=== PATIENT | male | born 1980 | race Caucasian/White ===

== ENCOUNTER → 2019-10-22 | Outpatient (REF) | payer OTHER ==
[2019-10-22 18:27] LABS: APPEARANCE, URINE CLEAR (CLEAR); BACTERIA, URINE AUTO NEGATIVE (NEGATIVE); BILIRUBIN, URINE AUTO NEGATIVE (NEGATIVE); BLOOD, URINE BLOOD NEGATIVE (NEGATIVE); COLOR, URINE YELLOW (YELLOW); GLUCOSE, URINE (UA) AUTO NEGATIVE (NEGATIVE); KETONE, URINE AUTO NEGATIVE (NEGATIVE); LEUKOCYTE ESTERASE, URINE AUTO NEGATIVE (NEGATIVE); MUCUS, URINE SMALL (NEGATIVE); NITRITE, URINE AUTO NEGATIVE (NEGATIVE); PROTEIN, URINE AUTO NEGATIVE (NEGATIVE); RBC, URINE AUTO 0 /HPF (0-3); SPECIFIC GRAVITY URINE AUTO 1.021 (1.002-1.035); SQUAMOUS EPITHELIAL CELL UR AU 0 /HPF (0-6); UROBILINOGEN, URINE AUTO 0.2 mg/dL (0.0-2.0); WBC, URINE AUTO 0 /HPF (0-3)
== END ==
LOC: M SMT 17:18
PROVIDERS: ATTEND Nurse Practitioner Women's Health
DX: R35.0 Frequency of micturition (principal)

== ENCOUNTER 2020-07-07 06:01 | Inpatient (IN) | payer OTHER ==
[~2020-07-07] VITALS: Ht 167.6 cm; Wt 77.9 kg
--- OUTSIDE RECORDS SUMMARY | 2020-07-07 06:06 | CCD ---
Author Author [facility] Organization [facility] Address Unknown Phone Unavailable Care Team Providers Care Bowl Turner Name Role Phone Jumalon, M Summer PHOTO JOURNALIST Unavailable Unavailable Jumalon, M Summer PHOTO JOURNALIST Unavailable Unavailable Jumalon, M Summer PHOTO JOURNALIST Unavailable Unavailable Jumalon, M Summer PHOTO JOURNALIST Unavailable Unavailable Jumalon, M Summer PHOTO JOURNALIST Unavailable Unavailable Jumalon, M Summer PHOTO JOURNALIST Unavailable Unavailable Jumalon, M Summer PHOTO JOURNALIST Unavailable Unavailable Jumalon, M Summer PHOTO JOURNALIST Unavailable Unavailable Jumalon, M Summer PHOTO JOURNALIST Unavailable Unavailable Jumalon, M Summer PHOTO JOURNALIST Unavailable Unavailable Jumalon, M Summer PHOTO JOURNALIST Unavailable Unavailable Jumalon, M Summer PHOTO JOURNALIST Unavailable Unavailable Jumalon, M Summer PHOTO JOURNALIST Unavailable Unavailable Jumalon, M Summer PHOTO JOURNALIST Unavailable Unavailable Jumalon, M Summer PHOTO JOURNALIST Unavailable Unavailable Jumalon, M Summer PHOTO JOURNALIST Unavailable Unavailable Jumalon, M Summer PHOTO JOURNALIST Unavailable Unavailable Jumalon, M Summer PHOTO JOURNALIST Unavailable Unavailable Jumalon, M Summer PHOTO JOURNALIST Unavailable Unavailable Jumalon, M Summer PHOTO JOURNALIST Unavailable Unavailable Jumalon, M Summer PHOTO JOURNALIST Unavailable Unavailable Jumalon, M Summer PHOTO JOURNALIST Unavailable Unavailable Jumalon, M Summer PHOTO JOURNALIST Unavailable Unavailable Jumalon, M Summer PHOTO JOURNALIST Unavailable Unavailable Jumalon, M Summer PHOTO JOURNALIST Unavailable Unavailable Jumalon, M Summer PHOTO JOURNALIST Unavailable Unavailable Jumalon, M Summer PHOTO JOURNALIST Unavailable Unavailable Jumalon, M Summer PHOTO JOURNALIST Unavailable Unavailable MCELHERAN, CHLOÉ PA Unavailable Unavailable MCELHERAN, CHLOÉ PA Unavailable Unavailable MCELHERAN, CHLOÉ PA Unavailable Unavailable MCELHERAN, CHLOÉ PA Unavailable Unavailable MCELHERAN, CHLOÉ PA Unavailable Unavailable MCELHERAN, CHLOÉ PA Unavailable Unavailable MCELHERAN, CHLOÉ PA Unavailable Unavailable MCELHERAN, CHLOÉ PA Unavailable Unavailable MCELHERAN, CHLOÉ PA Unavailable Unavailable MCELHERAN, CHLOÉ PA Unavailable Unavailable MCELHERAN, CHLOÉ PA Unavailable Unavailable MCELHERAN, CHLOÉ PA Unavailable Unavailable MCELHERAN, CHLOÉ PA Unavailable Unavailable MCELHERAN, CHLOÉ PA Unavailable Unavailable MCELHERAN, CHLOÉ PA Unavailable Unavailable MCELHERAN, CHLOÉ PA Unavailable Unavailable MCELHERAN, CHLOÉ PA Unavailable Unavailable MCELHERAN, CHLOÉ PA Unavailable Unavailable MCELHERAN, CHLOÉ PA Unavailable Unavailable MCELHERAN, CHLOÉ PA Unavailable Unavailable MCELHERAN, CHLOÉ PA Unavailable Unavailable MCELHERAN, CHLOÉ PA Unavailable Unavailable MCELHERAN, CHLOÉ PA Unavailable Unavailable MCELHERAN, CHLOÉ PA Unavailable Unavailable MCELHERAN, CHLOÉ PA Unavailable Unavailable MCELHERAN, CHLOÉ PA Unavailable Unavailable MCELHERAN, CHLOÉ PA Unavailable Unavailable MCELHERAN, CHLOÉ PA Unavailable Unavailable Bolla, S Doroteo MD Unavailable Unavailable Bolla, S Doroteo MD Unavailable Unavailable Bolla, S Doroteo MD Unavailable Unavailable Bolla, S Doroteo MD Unavailable Unavailable Bolla, S Doroteo MD Unavailable Unavailable Bolla, S Doroteo MD Unavailable Unavailable Bolla, S Doroteo MD Unavailable Unavailable Bolla, S Doroteo MD Unavailable Unavailable Bolla, S Doroteo MD Unavailable Unavailable Bolla, S Doroteo MD Unavailable Unavailable Bolla, S Doroteo MD Unavailable Unavailable Bolla, S Doroteo MD Unavailable Unavailable Bolla, S Doroteo MD Unavailable Unavailable Bolla, S Doroteo MD Unavailable Unavailable Bolla, S Doroteo MD Unavailable Unavailable Bolla, S Doroteo [place] Unavailable Unavailable Bolla, S Doroteo MD Unavailable Unavailable Bolla, S Doroteo MD Unavailable Unavailable Bolla, S Doroteo MD Unavailable Unavailable Bolla, S Doroteo MD Unavailable Unavailable Bolla, S Doroteo MD Unavailable Unavailable Bolla, S Doroteo MD Unavailable Unavailable Bolla, S Doroteo MD Unavailable Unavailable Bolla, S Doroteo MD Unavailable Unavailable Bolla, S Doroteo MD Unavailable Unavailable Bolla, S Doroteo MD Unavailable Unavailable Bolla, S Doroteo MD Unavailable Unavailable Bolla, S Doroteo MD Unavailable Unavailable Bolla, S Doroteo MD Unavailable Unavailable Bolla, S Doroteo MD Unavailable Unavailable Bolla, S Doroteo MD Unavailable Unavailable Bolla, S Doroteo MD Unavailable Unavailable Bolla, S Doroteo MD Unavailable Unavailable Bolla, S Doroteo MD Unavailable Unavailable Bolla, S Doroteo MD Unavailable Unavailable Bolla, S Doroteo MD Unavailable Unavailable Bolla, S Dortoeo MD Unavailable Unavailable Bolla, S Doroteo MD Unavailable Unavailable Bolla, S Doroteo MD Unavailable Unavailable Bolla, S Doroteo MD Unavailable Unavailable Bolla, S Doroteo MD Unavailable Unavailable Bolla, S Doroteo MD Unavailable Unavailable Bolla, S Doroteo MD Unavailable Unavailable Bolla, S Doroteo MD Unavailable Unavailable Bolla, S Doroteo MD Unavailable Unavailable Bolla, S Doroteo MD Unavailable Unavailable Bolla, S Doroteo MD Unavailable Unavailable Bolla, S Doroteo MD Unavailable Unavailable Re-disclosure Warning The records that you are about to access may contain information from federally-assisted alcohol or drug abuse programs. If such information is present, then the following federally mandated warning applies: This information has been disclosed to you from records protected by federal confidentiality rules (42 CFR part 2). The federal rules prohibit you from making any further disclosure of this information unless further disclosure is expressly permitted by the written consent of the person to whom it pertains or as otherwise permitted by 42 CFR part 2. A general authorization for the release of medical or other information is NOT sufficient for this purpose. The Federal rules restrict any use of the information to criminally investigate or prosecute any alcohol or drug abuse patient.The records that you are about to access may contain highly sensitive health information, the redisclosure of which is protected by Article 27-F of the [facility] Public Health law. If you continue you may have access to information: Regarding HIV / AIDS; Provided by facilities licensed or operated by the [facility] Office of Mental Health; or Provided by the [facility] Office for People With Developmental Disabilities. If such information is present, then the following [facility] mandated warning applies: This information has been disclosed to you from confidential records which are protected by state law. State law prohibits you from making any further disclosure of this information without the specific written consent of the person to whom it pertains, or as otherwise permitted by law. Any unauthorized further disclosure in violation of state law may result in a fine or skilled nursing sentence or both. A general authorization for the release of medical or other information is NOT sufficient authorization for further disc losure. Family History Family Member Name Family Member Gender Family Member Status Date o f Status Description Data Source(s) Unknown Female Problem [facility] ([facility]) Encounters Encounter Providers Location Date Indications Data Source(s ) OFFICE OUTPATIENT NEW 30 MINUTES Attender: CHLOÉ ORLANDO Physical Therapy 03/24/2020 09:30:00 AM EST MEDENT ([facility]) Summer Yeung, ANDREIA: [id number], [place] [address], Ph. Attender: Summer Yeung [facility] 12/30/2019 12:00:00 AM EDT IVANIA GRIGGS ([facility]) Doroteo Stewart MD: [id number] [facility] [address], [place] [address], Ph. Attender: Doroteo Stewart MD [facility] Office 12/14/2019 12:00:00 AM EDT LONNIE ([facility]) Doroteo Stewart MD: [id number] [facility] [address], [place] [address], Ph. Attender: Doroteo Stewart MD [facility] Office 12/14/2019 12:00:00 AM EDT LONNIE ([facility]) Doroteo Stewart MD: [address], [address], [place] [address], Ph. [phone] Attender: Doroteo Stewart MD [place] - [facility] 12/09/2019 12:00:00 AM EDT LONNIE ([facility]) Doroteo Stewart MD: [address], [address], [place] [address], Ph. [phone] Attender: Doroteo Stewart MD [place] - [facility] 12/09/2019 12:00:00 AM EDT LONNIE ([facility]) Doroteo Stewart MD: [address], [address], [place] [address], Ph. [phone] Attender: Doroteo AUSTIN - [facility] 12/09/2019 12:00:00 AM EDT LONNIE ([facility]) Doroteo Stewart MD: [address], [address], [place] [address], Ph. Attender: Doroteo Stewart MD [place] - [facility] 11/27/2019 12:00:00 AM EDT LONNIE ([facility]) Doroteo Stewart MD: [address], [address], [place] [address], Ph. Attender: Doroteo AUSTIN - [facility] 11/27/2019 12:00:00 AM EDT LONNIE ([facility]) Doroteo Stewart MD: [address], [address], [place] [address], Ph. Attender: Doroteo AUSTIN - [facility] 11/27/2019 12:00:00 AM EDT LONNIE ([facility]) Doroteo Stewart MD: [address], [address], [place] [address], Ph. Attender: Doroteo Stewart MD [place] - [facility] - [facility] 11/27/2019 12:00:00 AM EDT LONNIE ([facility]) Doroteo Stewart MD: [address], [address], [place] [address], Ph. [phone] Attender: Doroteo Stewart MD [place] - [facility] - [facility] 11/24/2019 12:00:00 AM EDT LONNIE ([facility]) Doroteo Stewart MD: [address], [address], [place] [address], Ph. [phone] Attender: Doroteo Stewart MD [place] - [facility] 11/24/2019 12:00:00 AM EDT LONNIE ([facility]) Doroteo Stewart MD: [address], [address], [place] [address], Ph. [phone] Attender: Doroteo Stewart MD [place] - [facility] - [facility] 11/24/2019 12:00:00 AM EDT LONNIE ([facility]) Doroteo Stewart MD: [address], [address], [place] [address], Ph. [phone] Attender: Doroteo Stewart MD [place] - [facility] 11/24/2019 12:00:00 AM EDT LONNIE ([facility]) Doroteo Stewart MD: [address], [address], [place] [address], Ph. [phone] Attender: Doroteo Stewart MD [place] - [facility] 11/24/2019 12:00:00 AM EDT LONNIE ([facility]) Doroteo Stewart MD: [address], [address], [place] [address], Ph. Attender: Doroteo Stewart MD [place] - [facility] 11/12/2019 12:00:00 AM EDT LONNIE ([facility]) Doroteo Stewart MD: [address], [address], [place] [address], Ph. Attender: Doroteo Stewart MD [place] - [facility] Office 11/12/2019 12:00:00 AM EDT LONNIE ([facility]) Doroteo Stewart MD: [address], [place] [address], Ph. Attender: Doroteo Stewart MD [place] - [facility] 11/12/2019 12:00:00 AM EDT LONNIE ([facility]) Doroteo Stewart MD: [address], [address], [place] [address], Ph. Attender: Doroteo Stewart MD [place] - [facility] 11/12/2019 12:00:00 AM EDT LONNIE ([facility]) Doroteo Stewart MD: [address] [address], [place] [address], Ph. Attender: Doroteo AUSTIN - [facility] 11/12/2019 12:00:00 AM EDT LONNIE ([facility]) Doroteo Stewart MD: [address], [place] [address], Ph. Attender: Doroteo Stewart MD [place] - [facility] Office 11/12/2019 12:00:00 AM EDT LONNIE ([facility]) Unknown [address] [facility] [address] 11/11/2019 12:00:00 AM EDT eCW1 ([facility]) Doroteo Stewart MD: [address], [address], [place] [address], Ph. [phone] Attender: Doroteo Stewart MD [place] - [facility] - [facility] Office 11/09/2019 12:00:00 AM EDT LONNIE ([facility]) Doroteo Stewart MD: [address] [address], [address], [place] [address], Ph. [phone] Attender: Doroteo Stewart MD [place] - [facility] 11/09/2019 12:00:00 AM EDT LONNIE ([facility]) Doroteo Stewart MD: [address], [address], [place] [address], Ph. [phone] Attender: Doroteo Stewart MD [place] - [facility] 11/09/2019 12:00:00 AM EDT LONNIE ([facility]) Doroteo Stewart MD: [address], [address], [place] [address], Ph. [phone] Attender: Doroteo Stewart MD [place] - [facility] - [facility] 11/09/2019 12:00:00 AM EDT LONNIE ([facility]) Doroteo Stewart MD: [address] [address], [address], [place] [address], Ph. [phone] Attender: Doroteo Stewart MD [place] - [facility] Office 11/09/2019 12:00:00 AM EDT LONNIE ([facility]) Doroteo Stewart MD: [address], [address], [place] [address], Ph. [phone] Attender: Doroteo Stewart MD [place] - [facility] 11/09/2019 12:00:00 AM EDT LONNIE ([facility]) Doroteo Stewart MD: [address], [address], [place] [address], Ph. [phone] Attender: Doroteo Stewart MD [place] - [facility] 11/09/2019 12:00:00 AM EDT LONNIE ([facility]) Doroteo Stewart MD: [address] [address], [address], [place] [address], Ph. Attender: Doroteo Stewart MD [place] - [facility] 10/29/2019 12:00:00 AM EDT LONNIE ([facility]) Doroteo Stewart MD: [address] [address], [address], [place] [address], Ph. Attender: Doroteo Stewart MD [place] - [facility] 10/29/2019 12:00:00 AM EDT LONINE ([facility]) Doroteo Stewart MD: [address] [address], [address], [place] [address], Ph. Attender: Doroteo Stewart MD [place] - [facility] 10/29/2019 12:00:00 AM EDT LONNIE ([facility]) Doroteo Stewart MD: [address] [address], [address], [place] [address], Ph. Attender: Doroteo Stewart MD [place] - [facility] 10/29/2019 12:00:00 AM EDT LONNIE ([facility]) Doroteo Stewart MD: [address], [address], [place] [address], Ph. Attender: Doroteo Stewart MD [place] - [facility] 10/29/2019 12:00:00 AM EDT LONNIE ([facility]) Doroteo Stewart MD: [address] [address], [address], [place] [address], Ph. Attender: Doroteo Stewart MD [place] - [facility] Office 10/29/2019 12:00:00 AM EDT LONNIE ([facility]) Doroteo Stewart MD: [address], [address], [place] [address], Ph. Attender: Doroteo Stewart MD [place] - [facility] Office 10/29/2019 12:00:00 AM EDT LONNIE ([facility]) Unknown [address] [facility] [id number] 10/29/2019 12:00:00 AM EDT eC ([facility]) Doroteo Stewart MD: [address], [place] [address], Ph. Attender: Doroteo Stewart MD [place] - [facility] 10/29/2019 12:00:00 AM EDT LONNIE ([facility]) Doroteo Stewart MD: [address] [address], [address], [place] [address], Ph. [phone] Attender: Doroteo Stewart MD [place] - [facility] 10/26/2019 12:00:00 AM EDT LONNIE ([facility]) Doroteo Stewart MD: [address], [address], [place] [address], Ph. [phone] Attender: Doroteo AUSTIN - [facility] Office 10/26/2019 12:00:00 AM EDT LONNIE ([facility]) Doroteo Stewart MD: [address] [address], [address], [place] [address], Ph. [phone] Attender: Doroteo AUST[place] - [facility] 10/26/2019 12:00:00 AM EDT LONNIE ([facility]) Doroteo Stewart MD: [address] [address], [place] [address], Ph. [phone] Attender: Doroteo Stewart MD [place] - [facility] - [facility] Office 10/26/2019 12:00:00 AM EDT LONNIE ([facility]) Doroteo Stewart MD: [address] [address], [address], [place] [address], Ph. [phone] Attender: Doroteo Stewart MD [place] - [facility] - [facility] 10/26/2019 12:00:00 AM EDT LONNIE ([facility]) Doroteo Stewart MD: [address] [address], [address], [place] [address], Ph. [phone] Attender: Doroteo Stewart MD [place] - [facility] - [facility] 10/26/2019 12:00:00 AM EDT LONNIE ([facility]) Doroteo Stewart MD: [address], [address], [place] [address], Ph. [phone] Attender: Doroteo Stewart MD [place] - [facility] - [facility] Office 10/26/2019 12:00:00 AM EDT LONNIE ([facility]) Doroteo Stewart MD: [address] [address], [place] [address], Ph. [phone] Attender: Doroteo AUSTIN - [facility] - [facility] Office 10/26/2019 12:00:00 AM EDT LONNIE ([facility]) Doroteo Stewart MD: [address]35 [address], [address], [place] [address], Ph. [phone] Attender: Doroteo Stewart MD [place] - [facility] - [facility] Office 10/26/2019 12:00:00 AM EDT LONNIE ([facility]) Outpatient [address] [facility] [address] 10/22/2019 12:00:00 AM EDT eCW1 ([facility]) Doroteo Stewart MD: [address], [place] [address], Ph. [phone] Attender: Doroteo Stewart MD [place] - [facility] 2019 12:00:00 AM EDT LONNIE ([facility]) Doroteo Stewart MD: [address] [address], [address], [place] [address], Ph. [phone] Attender: Doroteo Stewart MD [place] - [facility] 2019 12:00:00 AM EDT LONNIE ([facility]) Doroteo Stewart MD: [address], [address], [place] [address], Ph. [phone] Attender: Doroteo Stewart MD [place] - [facility] 2019 12:00:00 AM EDT LONNIE ([facility]) Doroteo Stewart MD: [address] [address], [place] [address], Ph. [phone] Attender: Doroteo Stewart MD [place] - [facility] 2019 12:00:00 AM EDT LONNIE ([facility]) Doroteo Stewart MD: [address], [address], [place] [address], Ph. [phone] Attender: Doroteo Stewart MD [place] - [facility] Office 2019 12:00:00 AM EDT LONNIE ([facility]) Doroteo Stewart MD: [address]43 [address], [place] [address], Ph. [phone] Attender: Doroteo AUST[place] - [facility] 2019 12:00:00 AM EDT LONNIE ([facility]) Doroteo Stewart MD: [address]67 [address], [address], [place] [address], Ph. [phone] Attender: Doroteo Stewart MD [place] - [facility] 2019 12:00:00 AM EDT LONNIE ([facility]) Doroteo Stewart MD: [address] [address], [address], [place] [address], Ph. [phone] Attender: Doroteo Stewart MD [place] - [facility] 2019 12:00:00 AM EDT LONNIE ([facility]) Doroteo Stewart MD: [address]45 [address], [address], [place] [address], Ph. [phone] Attender: Doroteo Stewart MD [place] - [facility] 2019 12:00:00 AM EDT LONNIE ([facility]) Doroteo Stewart MD: [address]57 [address], [address], [place] [address], Ph. [phone] Attender: Doroteo Stewart MD [place] - [facility] 2019 12:00:00 AM EDT LONNIE ([facility]) Summer Yeung, OIL TANKER CAPTAIN: [address], [place] [address], Ph. Attender: Summer Yeung [facility] - [facility] 09/16/2019 12:00:00 AM EDT IVANIA GRIGGS ([facility]) Summer Yeung, OIL TANKER CAPTAIN: [address], [place] [address], Ph. Attender: Summer Yeung [facility] - [facility] 09/16/2019 12:00:00 AM EDT ATHE NA ([facility]) Summer Yeung, OIL TANKER CAPTAIN: [address], [address], [place] [address], Ph. Attender: Summer Yeung [facility] 09/16/2019 12:00:00 AM EDT ATHE NA ([facility]) Summer Yeung, OIL TANKER CAPTAIN: [address], [address], [place] [address], Ph. Attender: Summer Halekeaton [facility] 09/16/2019 12:00:00 AM EDT ATHE NA ([facility]) Summer Yeung, OIL TANKER CAPTAIN: [address], [place] [address], Ph. Attender: Summernba Yeung [facility] 09/16/2019 12:00:00 AM EDT ATHE NA ([facility]) uSmmer Yeung, OIL TANKER CAPTAIN: [address], [place] [address], Ph. Attender: Summer Giseleronniekeaton [facility] 09/16/2019 12:00:00 AM EDT ATHE NA ([facility]) Summer Yeung, OIL TANKER CAPTAIN: [address], [address], [place] [address], Ph. Attender: Summernba Yeung [facility] 09/16/2019 12:00:00 AM EDT ATHE NA ([facility]) Summer Yeung, OIL TANKER CAPTAIN: [address], [address], [place] [address], Ph. Attender: Summer Yeung [facility] 09/16/2019 12:00:00 AM EDT ATHNba NA ([facility]) Summer Yeung, OIL TANKER CAPTAIN: [address], [place] [address], Ph. Attender: Summer Yeung [facility] - [facility] 09/16/2019 12:00:00 AM EDT ATHE NA ([facility]) Summer Yeung, OIL TANKER CAPTAIN: [address], [place] [address], Ph. Attender: Summer Yeung [facility] - [facility] 09/16/2019 12:00:00 AM EDT ATHNba GRIGGS ([facility]) Summer Yeung, OIL TANKER CAPTAIN: [address], [address], [place] [address], Ph. Attender: Summer Yeung [facility] - [facility] 09/16/2019 12:00:00 AM EDT ATHNba GRIGGS ([facility]) Summer Yeung, OIL TANKER CAPTAIN: [address], [place] [address], Ph. Attender: Summer Yeung [facility] 08/31/2019 12:00:00 AM EDT LONNIE ([facility]) Summer Yeung, OIL TANKER CAPTAIN: [address], [place] [address], Ph. Attender: Summer Yeung [facility] 08/31/2019 12:00:00 AM EDT LONNIE ([facility]) Summer Yeung, OIL TANKER CAPTAIN: [address], [place] [address], Ph. Attender: Summer Yeung [employer] [facility] 08/31/2019 12:00:00 AM EDT LONNIE ([facility]) Summer Yeung, OIL TANKER CAPTAIN: [address], [place] [address], Ph. Attender: Summer Yeung [place] [place] [facility] 08/31/2019 12:00:00 AM EDT LONNIE ([facility]) Summer Yeung, OIL TANKER CAPTAIN: [address], [place] [address], Ph. Attender: Summer Yeung [employer] [place] - [facility] 08/31/2019 12:00:00 AM EDT LONNIE ([facility]) Summer Yeung, OIL TANKER CAPTAIN: [address], [place] [address], Ph. Attender: Summer Yeung [employer] [place] [facility] 08/31/2019 12:00:00 AM EDT LONNIE ([facility]) Summer Yeung, OIL TANKER CAPTAIN: [address], [place] [address], Ph. Attender: Summer Yeung [employer] [place] [facility] 08/31/2019 12:00:00 AM EDT LONNIE ([facility]) Summer Yeung, OIL TANKER CAPTAIN: [address], [place] [address], Ph. Attender: Summer Yeung PH[employer] JOU[place] - [facility] 08/31/2019 12:00:00 AM EDT LONNIE ([facility]) Summer Yeung, OIL TANKER CAPTAIN: [address], [place] [address], Ph. Attender: Summer Yeung [facility] 08/31/2019 12:00:00 AM EDT LONNIE ([facility]) Summer Yeung, OIL TANKER CAPTAIN: [address], [place] [address], Ph. Attender: Summer Yeung [facility] - [facility] 08/31/2019 12:00:00 AM EDT LONNIE ([facility]) Summer Yeung, OIL TANKER CAPTAIN: [address], [place] [address], Ph. Attender: Summer Yeung [facility] - [facility] 08/31/2019 12:00:00 AM EDT LONNIE ([facility]) Summer Yeung, OIL TANKER CAPTAIN: [address], [place] [address], Ph. Attender: Summer Yeung [facility] - [facility] 08/31/2019 12:00:00 AM EDT LONNIE ([facility]) Medications Medication Brand Name Start Date Product Form Dose Route Admi nistrative Instructions Pharmacy Instructions Status Indications Reaction Description Data Source(s) 24 HR Oxybutynin chloride 10 MG Extended Release Oral Tablet Oxybutynin Chloride ER 10 MG Oxybutynin Chloride ER 10 MG 11/11/2019 12:00:00 AM EDT 1.0 {tablet} active Oxybutynin Chloride ER 10 MG eCW1 ([facility]) Myrebtriq 25 MG UNK 10/22/2019 12:00:00 AM EDT 1.0 {tablet} active Myrebtriq 25 MG eCW1 ([facility]) Myrebtriq 25 MG UNK 10/22/2019 12:00:00 AM EDT 1.0 {tablet} active Myrebtriq 25 MG eCW1 ([facility]) Myrebtriq 25 MG UNK 10/22/2019 12:00:00 AM EDT 1.0 {tablet} active Myrebtriq 25 MG eCW1 ([facility]) Insurance Providers Payer name Policy type / Coverage type Policy ID Covered libertarian ID Covered libertarian's relationship to pond Policy Pond Plan Information [employer] [id number] SP [id number] U [id number] Self [id number] [employer] [id number] Self [id number] [employer] [place] [id number] 18 [id number] [employer] - PHYSICIAN CO [id number] 18 [id number] EAST [employer] - O/P [id number] 18 [id number] [employer] Commercial [id number] Self [id number] ANSI-Not a Secondary Insurance [id number] Problems, Conditions, and Diagnoses Code Display Name Description Problem Type Effective Dates Data Source(s) N39.43 Dribbling of urine Dribbling following urination Probl em 10/22/2019 12:00:00 AM EDT eCW1 ([facility]) Surgeries/Procedures Procedure Description Date Indications Data Source(s) uro PVR (Post Voiding Residual) Bladder Scan 0 12:00:00 AM EDT eCW1 ([facility]) Results ID Date Data Source [id number] 12/09/2019 12:00:00 AM EDT LONNIE ([facility]) Name Value Range Interpretation Code Description Data Hortencia rce(s) Supporting Document(s) ID Date Data Source [id number] 12/09/2019 12:00:00 AM EDT [facility] Name Value Range Interpretation Code Description Data Hortencia rce(s) Supporting Document(s) SARS-CoV-2 [facility] This lab was ordered by [facility]-COVID[facility] and reported by [facility]. ID Date Data Source [id number] 12/09/2019 12:00:00 AM EDT LONNIE ([facility]) Name Value Range Interpretation Code Description Data Hortencia rce(s) Supporting Document(s) ID Date Data Source [id number] 11/24/2019 12:00:00 AM EDT LONNEI ([facility]) Name Value Range Interpretation Code Description Data Hortencia rce(s) Supporting Document(s) ID Date Data Source [id number] 11/24/2019 12:00:00 AM EDT LONNIE ([facility]) Name Value Range Interpretation Code Description Data Hortencia rce(s) Supporting Document(s) ID Date Data Source [id number] 11/24/2019 12:00:00 AM EDT LONNIE ([facility]) Name Value Range Interpretation Code Description Data Hortencia rce(s) Supporting Document(s) ID Date Data Source [id number] 11/24/2019 12:00:00 AM EDT [facility] Name Value Range Interpretation Code Description Data Hortencia rce(s) Supporting Document(s) SARS-CoV-2 [facility] This lab was ordered by [facility] and reported by [facility]. ID Date Data Source [id number] 11/24/2019 12:00:00 AM EDT LONNIE ([facility]) Name Value Range Interpretation Code Description Data Hortencia rce(s) Supporting Document(s) ID Date Data Source [id number] 11/09/2019 12:00:00 AM EDT LONNIE ([facility]) Name Value Range Interpretation Code Description Data Hortencia rce(s) Supporting Document(s) ID Date Data Source [id number] 11/09/2019 12:00:00 AM EDT LONNIE ([facility]) Name Value Range Interpretation Code Description Data Hortencia rce(s) Supporting Document(s) ID Date Data Source [id number] 11/09/2019 12:00:00 AM EDT LONNIE ([facility]) Name Value Range Interpretation Code Description Data Hortencia rce(s) Supporting Document(s) ID Date Data Source [id number] 11/09/2019 12:00:00 AM EDT LONNIE ([facility]) Name Value Range Interpretation Code Description Data Hortencia rce(s) Supporting Document(s) ID Date Data Source [id number] 11/09/2019 12:00:00 AM EDT LONNIE ([facility]) Name Value Range Interpretation Code Description Data Hortencia rce(s) Supporting Document(s) ID Date Data Source [id number] 11/09/2019 12:00:00 AM EDT LONNIE ([facility]) Name Value Range Interpretation Code Description Data Hortencia rce(s) Supporting Document(s) ID Date Data Source [id number] 11/09/2019 12:00:00 AM EDT [facility] Name Value Range Interpretation Code Description Data Hortencia rce(s) Supporting Document(s) SARS-CoV-2 [facility] This lab was ordered by [facility]-COVID[facility] and reported by [facility]. ID Date Data Source [id number] 10/26/2019 12:00:00 AM EDT LONNIE ([facility]) Name Value Range Interpretation Code Description Data Hortencia rce(s) Supporting Document(s) ID Date Data Source [id number] 10/26/2019 12:00:00 AM EDT LONNIE ([facility]) Name Value Range Interpretation Code Description Data Hortencia rce(s) Supporting Document(s) ID Date Data Source [id number] 10/26/2019 12:00:00 AM EDT LONNIE ([facility]) Name Value Range Interpretation Code Description Data Hortencia rce(s) Supporting Document(s) ID Date Data Source [id number] 10/26/2019 12:00:00 AM EDT LONNIE ([facility]) Name Value Range Interpretation Code Description Data Hortencia rce(s) Supporting Document(s) ID Date Data Source [id number] 10/26/2019 12:00:00 AM EDT LONNIE ([facility]) Name Value Range Interpretation Code Description Data Hortencia rce(s) Supporting Document(s) ID Date Data Source [id number] 10/26/2019 12:00:00 AM EDT LONNIE ([facility]) Name Value Range Interpretation Code Description Data Hortencia rce(s) Supporting Document(s) ID Date Data Source [id number] 10/26/2019 12:00:00 AM EDT LONNIE ([facility]) Name Value Range Interpretation Code Description Data Hortencia rce(s) Supporting Document(s) ID Date Data Source [id number] 10/26/2019 12:00:00 AM EDT LONNIE ([facility]) Name Value Range Interpretation Code Description Data Hortencia rce(s) Supporting Document(s) ID Date Data Source [id number] 10/26/2019 12:00:00 AM EDT [facility] Name Value Range Interpretation Code Description Data Hortencia rce(s) Supporting Document(s) SARS-CoV-2 [facility] This lab was ordered by [facility]-COVID[facility] and reported by [facility]. ID Date Data Source [id number] URINALYSIS 10/23/2019 09:09:08 AM EDT eCW1 ([facility]) Name Value Range Interpretation Code Description Data Hortencia rce(s) Supporting Document(s) UA URINALYSIS eCW1 ([facility]) ID Date Data Source URINE CULTURE 10/23/2019 02:21:44 AM EDT eCW1 ([facility]) Name Value Range Interpretation Code Description Data Hortencia rce(s) Supporting Document(s) URINE CULTURE eCW1 ([facility]) ID Date Data Source [id number] 2019 12:00:00 AM EDT LONNIE ([facility]) Name Value Range Interpretation Code Description Data Hortencia rce(s) Supporting Document(s) ID Date Data Source [id number] 2019 12:00:00 AM EDT LONNIE ([facility]) Name Value Range Interpretation Code Description Data Hortencia rce(s) Supporting Document(s) ID Date Data Source [id number] 2019 12:00:00 AM EDT LONNIE ([facility]) Name Value Range Interpretation Code Description Data Hortencia rce(s) Supporting Document(s) ID Date Data Source [id number] 2019 12:00:00 AM EDT LONNIE ([facility]) Name Value Range Interpretation Code Description Data Hortencia rce(s) Supporting Document(s) ID Date Data Source [id number] 2019 12:00:00 AM EDT LONNIE ([facility]) Name Value Range Interpretation Code Description Data Hortencia rce(s) Supporting Document(s) ID Date Data Source [id number] 2019 12:00:00 AM EDT LONNIE ([facility]) Name Value Range Interpretation Code Description Data Hortencia rce(s) Supporting Document(s) ID Date Data Source [id number] 2019 12:00:00 AM EDT LONNIE ([facility]) Name Value Range Interpretation Code Description Data Hortencia rce(s) Supporting Document(s) ID Date Data Source [id number] 2019 12:00:00 AM EDT LONNIE ([facility]) Name Value Range Interpretation Code Description Data Hortencia rce(s) Supporting Document(s) ID Date Data Source [id number] 2019 12:00:00 AM EDT LONNIE ([facility]) Name Value Range Interpretation Code Description Data Hortencia rce(s) Supporting Document(s) ID Date Data Source [id number] 2019 12:00:00 AM EDT [facility] Name Value Range Interpretation Code Description Data Hortencia rce(s) Supporting Document(s) SARS-CoV-2 [facility] This lab was ordered by [facility] and reported by [facility]. Procedure Social History Code Duration Value Status Description Data Source(s ) Smoking 10/22/2019 12:00:00 AM EDT Never Smoker completed Never S moker eCW1 ([facility]) Smoking 10/22/2019 12:00:00 AM EDT Never Smoker completed Never S moker eCW1 ([facility]) Smoking 10/22/2019 12:00:00 AM EDT Never Smoker completed Never S moker eCW1 ([facility]) Vital Signs ID Date Data Source [id number] Name Value Range Interpretation Code Description Data Source(s) Body mass index (BMI) [Ratio] 27.3 kg/m2 27.3 k g/m2 MEDENT ([facility] ) Body weight 174.25 [lb_av] 174.25 [lb_av] MEDEN T ([facility] ) Body height 67 [in_i] 67 [in_i] MEDENT ([facility]) 5'7" Body temperature 97.3 [degF] 97.3 [degF] MEDENT ([facility]) Diastolic blood pressure 70 mm[Hg] 70 mm[Hg] eCW1 ([facility]) Systolic blood pressure 110 mm[Hg] 110 mm[Hg] e CW1 ([facility]) Body temperature 97.0 [degF] 97.0 [degF] eCW1 ( [facility]) Respiratory rate 18 /min 18 /min eCW1 ([facility]) Heart rate 60 /min 60 /min eCW1 ([facility]) Body mass index (BMI) [Ratio] 28.39 kg/m2 28.39 kg/m2 eCW1 ([facility]) Body height 66.5 [in_i] 66.5 [in_i] eCW1 ([facility]) Body weight 178.6 [lb_av] 178.6 [lb_av] eCW1 ([facility]) Body weight 165 [lb_av] 165 [lb_av] LONNIE ([facility]) Systolic blood pressure 101 mm[Hg] 101 mm[Hg] A THENA ([facility]) Body mass index (BMI) [Ratio] 26.6 kg/m2 26.6 k g/m2 LONNIE ([facility]) Body height 66 [in_i] 66 [in_i] LONNIE ([facility]) Diastolic blood pressure 58 mm[Hg] 58 mm[Hg] LONNIE ([facility]) Body weight 165 [lb_av] 165 [lb_av] LONNIE ([facility]) Systolic blood pressure 101 mm[Hg] 101 mm[Hg] A THENA ([facility]) Body mass index (BMI) [Ratio] 26.6 kg/m2 26.6 k g/m2 LONNIE ([facility]) Body height 66 [in_i] 66 [in_i] LONNIE ([facility]) Diastolic blood pressure 58 mm[Hg] 58 mm[Hg] LONNIE ([facility]) Body weight 165 [lb_av] 165 [lb_av] LONNIE ([facility]) Systolic blood pressure 101 mm[Hg] 101 mm[Hg] A THENA ([facility]) Body mass index (BMI) [Ratio] 26.6 kg/m2 26.6 k g/m2 LONNIE ([facility]) Body height 66 [in_i] 66 [in_i] LONNIE ([facility]) Diastolic blood pressure 58 mm[Hg] 58 mm[Hg] LONNIE ([facility]) Body weight 165 [lb_av] 165 [lb_av] LONNIE ([facility]) Systolic blood pressure 101 mm[Hg] 101 mm[Hg] A THENA ([facility]) Body mass index (BMI) [Ratio] 26.6 kg/m2 26.6 k g/m2 LONNIE ([facility]) Body height 66 [in_i] 66 [in_i] LONNIE ([facility]) Diastolic blood pressure 58 mm[Hg] 58 mm[Hg] LONNIE ([facility]) Body weight 165 [lb_av] 165 [lb_av] LONNIE ([facility]) Systolic blood pressure 101 mm[Hg] 101 mm[Hg] A THENA ([facility]) Body mass index (BMI) [Ratio] 26.6 kg/m2 26.6 k g/m2 LONNIE ([facility]) Body height 66 [in_i] 66 [in_i] LONNIE ([facility]) Diastolic blood pressure 58 mm[Hg] 58 mm[Hg] LONNIE ([facility]) Body weight 165 [lb_av] 165 [lb_av] LONNIE ([facility]) Systolic blood pressure 101 mm[Hg] 101 mm[Hg] A THENA ([facility]) Body mass index (BMI) [Ratio] 26.6 kg/m2 26.6 k g/m2 LONNIE ([facility]) Body height 66 [in_i] 66 [in_i] LONNIE ([facility]) Diastolic blood pressure 58 mm[Hg] 58 mm[Hg] LONNIE ([facility]) Body weight 165 [lb_av] 165 [lb_av] LONNIE ([facility]) Systolic blood pressure 101 mm[Hg] 101 mm[Hg] A THENA ([facility]) Body mass index (BMI) [Ratio] 26.6 kg/m2 26.6 k g/m2 LONNIE ([facility]) Body height 66 [in_i] 66 [in_i] LONNIE ([facility]) Diastolic blood pressure 58 mm[Hg] 58 mm[Hg] LONNIE ([facility]) Body weight 165 [lb_av] 165 [lb_av] LONNIE ([facility]) Systolic blood pressure 101 mm[Hg] 101 mm[Hg] A THENA ([facility]) Body mass index (BMI) [Ratio] 26.6 kg/m2 26.6 k g/m2 LONNIE ([facility]) Body height 66 [in_i] 66 [in_i] LONNIE ([facility]) Diastolic blood pressure 58 mm[Hg] 58 mm[Hg] LONNIE ([facility]) Body weight 165 [lb_av] 165 [lb_av] LONNIE ([facility]) Systolic blood pressure 101 mm[Hg] 101 mm[Hg] A THENA ([facility]) Body mass index (BMI) [Ratio] 26.6 kg/m2 26.6 k g/m2 LONNIE ([facility]) Body height 66 [in_i] 66 [in_i] LONNIE ([facility]) Diastolic blood pressure 58 mm[Hg] 58 mm[Hg] LONNIE ([facility]) Body weight 165 [lb_av] 165 [lb_av] LONNIE ([facility]) Systolic blood pressure 101 mm[Hg] 101 mm[Hg] A THENA ([facility]) Body mass index (BMI) [Ratio] 26.6 kg/m2 26.6 k g/m2 LONNIE ([facility]) Body height 66 [in_i] 66 [in_i] LONNIE ([facility]) Diastolic blood pressure 58 mm[Hg] 58 mm[Hg] LONNIE ([facility]) Body weight 165 [lb_av] 165 [lb_av] LONNIE ([facility]) Systolic blood pressure 101 mm[Hg] 101 mm[Hg] A THENA ([facility]) Body mass index (BMI) [Ratio] 26.6 kg/m2 26.6 k g/m2 LONNIE ([facility]) Body height 66 [in_i] 66 [in_i] LONNIE ([facility]) Diastolic blood pressure 58 mm[Hg] 58 mm[Hg] LONNIE ([facility]) Patient Treatment Plan of Care Planned Activity Planned Date Details Description Data Source (s) 24 HR Oxybutynin chloride 10 MG Extended Release Oral Tablet 11/11/2019 12:00:00 AM EDT eCW1 (On [facility] of [facility]) Myrebtriq 25 MG 10/22/2019 12:00:00 AM EDT eCW1 ([facility]) Myrebtriq 25 MG 10/22/2019 12:00:00 AM EDT eCW1 ([facility]) Myrebtriq 25 MG 10/22/2019 12:00:00 AM EDT eCW1 ([facility])
[2020-07-07 06:49] LABS: HEMATOCRIT 46.4 % (42.0-52.0); HEMOGLOBIN 15.5 g/dl (13.5-17.5); MEAN CORPUSCULAR HEMOGLOBIN 30.9 pg (27.0-33.0); MEAN CORPUSCULAR HGB CONC 33.4 g/dl (32.0-36.5); MEAN CORPUSCULAR VOLUME 92.6 fl (80.0-96.0); PLATELET COUNT, AUTOMATED 150 10^3/uL (150-450); RED BLOOD COUNT 5.01 10^6/uL (4.30-6.10); WHITE BLOOD COUNT 5.4 10^3/uL (4.0-10.0)
[2020-07-07 07:10] LABS: AMPHETAMINES LEVEL URINE NEGATIVE (NEGATIVE); BARBITURATES URINE NEGATIVE (NEGATIVE); BENZODIAZEPINES URINE NEGATIVE (NEGATIVE); CANNABINOIDS URINE NEGATIVE (NEGATIVE); COCAINE METABOLITE URINE NEGATIVE (NEGATIVE); METHADONE URINE NEGATIVE (NEGATIVE); OPIATES URINE NEGATIVE (NEGATIVE); PHENCYCLIDINE URINE NEGATIVE (NEGATIVE)
[2020-07-07 07:23] LABS: ACETAMINOPHEN LEVEL < 2.0 UG/ML (10.0-30.0); ALBUMIN 3.5 GM/DL (3.2-5.2); ALT/SGPT 21 U/L (12-78); BILIRUBIN,DIRECT 0.3 MG/DL (0.0-0.2); BILIRUBIN,TOTAL 0.9 MG/DL (0.2-1.0); BLOOD UREA NITROGEN 17 MG/DL (7-18); CALCIUM LEVEL 8.7 MG/DL (8.5-10.1); CARBON DIOXIDE LEVEL 30 MEQ/L (21-32); CHLORIDE LEVEL 107 MEQ/L (98-107); CREATININE FOR GFR 1.29 MG/DL (0.70-1.30); ETHYL ALCOHOL (ETHANOL) < 0.003 % (0.000-0.010); GLOMERULAR FILTRATION RATE > 60.0 (>60); GLUCOSE, FASTING 91 MG/DL (70-100); POTASSIUM SERUM 3.6 MEQ/L (3.5-5.1); SALICYLATE LEVEL < 1.7 MG/DL (5.0-30.0); SODIUM LEVEL 141 MEQ/L (136-145); TOTAL PROTEIN 6.4 GM/DL (6.4-8.2)
--- OUTSIDE RECORDS SUMMARY | 2020-07-07 07:33 | CCD ---
Author Author [facility] Organization [facility] Address Unknown Phone Unavailable Care Team Providers Care Fitness Plan Coordinator Name Role Phone Jumalon, M Summer CUSTOM SKI MAKER Unavailable Unavailable Jumalon, M Summer CUSTOM SKI MAKER Unavailable Unavailable Jumalon, M Summer CUSTOM SKI MAKER Unavailable Unavailable Jumalon, M Summer CUSTOM SKI MAKER Unavailable Unavailable Jumalon, M Summer CUSTOM SKI MAKER Unavailable Unavailable Jumalon, M Summer CUSTOM SKI MAKER Unavailable Unavailable Jumalon, M Summer CUSTOM SKI MAKER Unavailable Unavailable Jumalon, M Summer CUSTOM SKI MAKER Unavailable Unavailable Jumalon, M Summer CUSTOM SKI MAKER Unavailable Unavailable Jumalon, M Summer CUSTOM SKI MAKER Unavailable Unavailable Jumalon, M Summer CUSTOM SKI MAKER Unavailable Unavailable Jumalon, M Summer CUSTOM SKI MAKER Unavailable Unavailable Jumalon, M Summer CUSTOM SKI MAKER Unavailable Unavailable Jumalon, M Summer CUSTOM SKI MAKER Unavailable Unavailable Jumalon, M Summer CUSTOM SKI MAKER Unavailable Unavailable Jumalon, M Summer CUSTOM SKI MAKER Unavailable Unavailable Jumalon, M Summer CUSTOM SKI MAKER Unavailable Unavailable Jumalon, M Summer CUSTOM SKI MAKER Unavailable Unavailable Jumalon, M Summer CUSTOM SKI MAKER Unavailable Unavailable Jumalon, M Summer CUSTOM SKI MAKER Unavailable Unavailable Jumalon, M Summer CUSTOM SKI MAKER Unavailable Unavailable Jumalon, M Summer CUSTOM SKI MAKER Unavailable Unavailable Jumalon, M Summer CUSTOM SKI MAKER Unavailable Unavailable Jumalon, M Summer CUSTOM SKI MAKER Unavailable Unavailable Jumalon, M Summer CUSTOM SKI MAKER Unavailable Unavailable Jumalon, M Summer CUSTOM SKI MAKER Unavailable Unavailable Jumalon, M Summer CUSTOM SKI MAKER Unavailable Unavailable Jumalon, M Summer CUSTOM SKI MAKER Unavailable Unavailable MCELHERAN, CHLOÉ PA Unavailable Unavailable [...] S Doroteo MD Unavailable Unavailable Bolla, S Doroteofredy CAMARA Unavailable Unavailable Bolla, S Doroteo MD [...] is protected by Article 27-F of the [facility] Public Health law. If you continue you may have access to information: Regarding HIV / AIDS; Provided by facilities licensed or operated by the [facility] Office of Mental Health; or Provided by the [facility] Office for People With Developmental Disabilities. If such information is present, then the following [facility] mandated warning applies: This information has been [...] law may result in a fine or nursing home sentence or both. A general authorization for the release of medical or other information is NOT sufficient authorization for further disc losure. Family History Family Member Name Family Member Gender Family Member Status Date o f Status Description Data Source(s) Unknown Female Problem MEDENT ([facility]) Encounters Encounter Providers Location Date Indications Data Source(s ) OFFICE OUTPATIENT NEW 30 MINUTES Attender: CHLOÉ ORLANDO Physical Therapy 03/24/2020 09:30:00 AM EST MEDENT ([facility]) Summer Yeung, GLASS LATHE OPERATOR: [address] [facility] [address], [place] [address], Ph. Attender: Summer [facility] 12/30/2019 12:00:00 AM EDT IVANIA GRIGGS ([facility]) Doroteo Stewart MD: [address] [facility] [address], [place] [address], Ph. Attender: Doroteo Stewart MD [facility] Office 12/14/2019 12:00:00 AM EDT LONNIE ([facility]) Doroteo Stewart MD: [address] [facility] [address], [place] [address], Ph. Attender: Doroteo Stewart MD [facility] 12/14/2019 12:00:00 AM EDT LONNIE ([facility]) Doroteo Stewart MD: [address], [address], [place] [address], Ph. [phone] Attender: Doroteo Stewart MD [place] - [facility] 12/09/2019 12:00:00 AM EDT LONNIE ([facility]) Doroteo Stewart MD: [address], [address], [place] [address], Ph. [phone] Attender: Doroteo [place] MD [place] [facility] 12/09/2019 12:00:00 AM EDT LONNIE ([facility]) Doroteo Stewart MD: [address], [address], [place] [address], Ph. [phone] Attender: Doroteo [place] MD [place] [facility] 12/09/2019 12:00:00 AM EDT LONNIE ([facility]) Doroteo Stewart MD: [address], [address], [place] [address], Ph. Attender: Doroteo Stewart MD [place] [facility] 11/27/2019 12:00:00 AM EDT LONNIE ([facility]) Doroteo Stewart MD: [address], [address], [place] [address], Ph. Attender: Doroteo Stewart MD [place] [facility] 11/27/2019 12:00:00 AM EDT LONNIE ([facility]) Doroteo Stewart MD: [address], [address], [place] [address], Ph. Attender: Doroteo [place] - [facility] 11/27/2019 12:00:00 AM EDT LONNIE ([facility]) Doroteo Stewart MD: [address], [address], [place] [address], Ph. Attender: Doroteo Stewart MD [place] - [facility] 11/27/2019 12:00:00 AM EDT LONNIE ([facility]) Doroteo Stewart MD: [address], [address], [place] [address], Ph. [phone] Attender: Doroteo [place] MD [place] - [facility] 11/24/2019 12:00:00 AM EDT LONNIE ([facility]) Doroteo Stewart MD: [address], [address], [place] [address], Ph. [phone] Attender: Doroteo [place] - [facility] 11/24/2019 12:00:00 AM EDT LONNIE ([facility]) Doroteo Stewart MD: [address], [address], [place] [address], Ph. [phone] Attender: Doroteo [place] MD [place] - [facility] 11/24/2019 12:00:00 AM EDT LONNIE ([facility]) Doroteo Stewart MD: [address], [address], [place] [address], Ph. [phone] Attender: Doroteo [place] [facility] 11/24/2019 12:00:00 AM EDT LONNIE ([facility]) Doroteo Stewart MD: [address], [address], [place] [address], Ph. [phone] Attender: Doroteo [place] - [facility] 11/24/2019 12:00:00 AM EDT LONNIE ([facility]) Doroteo Stewart MD: [address], [address], [place] [address], Ph. Attender: Doroteo [place] MD [place] [facility] 11/12/2019 12:00:00 AM EDT LONNIE ([facility]) Doroteo Stewart MD: [address], [address], [place] [address], Ph. Attender: Doroteo [place] [facility] 11/12/2019 12:00:00 AM EDT LONNIE ([facility]) Doroteo Stewart MD: [address], [address], [place] [address], Ph. Attender: Doroteo Stewart MD [place] [facility] 11/12/2019 12:00:00 AM EDT LONNIE ([facility]) Doroteo Stewart MD: [address], [address], [place] [address], Ph. Attender: Doroteo Stewart MD [place] [facility] 11/12/2019 12:00:00 AM EDT LONNIE ([facility]) Doroteo Stewart MD: [address], [address], [place] [address], Ph. Attender: Doroteo [place] MD [place] [facility] 11/12/2019 12:00:00 AM EDT LONNIE ([facility]) Doroteo Stewart MD: [address], [place] [address], Ph. Attender: Doroteo Stewart MD [place] - [facility] 11/12/2019 12:00:00 AM EDT LONNIE ([facility]) Unknown [address] [facility], [facility] [address] 11/11/2019 12:00:00 AM EDT eCW1 ([facility]) Doroteo Stewart MD: [address], [address], [place] [address], Ph. [phone] Attender: Doroteo [place] - [facility] - [facility] 11/09/2019 12:00:00 AM EDT LONNIE ([facility]) Doroteo Stewart MD: [address], [address], [place] [address], Ph. [phone] Attender: Doroteo [place] - [facility] - [facility] 11/09/2019 12:00:00 AM EDT LONNIE ([facility]) Doroteo Stewart MD: [address], [address], [place] [address], Ph. [phone] Attender: Doroteo [place] - [facility] - [facility] 11/09/2019 12:00:00 AM EDT LONNIE ([facility]) Doroteo Stewart MD: [address], [address], [place] [address], Ph. [phone] Attender: Doroteo [place] - [facility] - [facility] 11/09/2019 12:00:00 AM EDT LONNIE ([facility]) Doroteo Stewart MD: [address], [address], [place] [address], Ph. [phone] Attender: Doroteo [place] - [facility] - [facility] 11/09/2019 12:00:00 AM EDT LONNIE ([facility]) Doroteo Stewart MD: [address], [address], [place] [address], Ph. [phone] Attender: Doroteo [place] - [facility] Office 11/09/2019 12:00:00 AM EDT LONNIE ([facility]) Doroteo Stewart MD: [address], [address], [place] [address], Ph. [phone] Attender: Doroteo [place] - [facility] 11/09/2019 12:00:00 AM EDT LONNIE ([facility]) Doroteo Stewart MD: [address], [address], [place] [address], Ph. Attender: Doroteo [place] - [facility] 10/29/2019 12:00:00 AM EDT LONNIE ([facility]) Doroteo Stewart MD: [address], [address], [place] [address], Ph. Attender: Doroteo [place] MD [place] - [facility] 10/29/2019 12:00:00 AM EDT LONNIE ([facility]) Doroteo Stewart MD: [address], [address], [place] [address], Ph. Attender: Doroteo Stewart MD [place] - [facility] 10/29/2019 12:00:00 AM EDT LONNIE ([facility]) Doroteo Stewart MD: [address], [address], [place] [address], Ph. Attender: Doroteo [place] - [facility] 10/29/2019 12:00:00 AM EDT LONNIE ([facility]) Doroteo Stewart MD: [address], [address], [place] [address], Ph. Attender: Doroteo [place] - [facility] 10/29/2019 12:00:00 AM EDT LONNIE ([facility]) Doroteo Stewart MD: [address], [address], [place] [address], Ph. Attender: Doroteo Stewart MD [place] - [facility] Office 10/29/2019 12:00:00 AM EDT LONNIE ([facility]) Doroteo Stewart MD: [address], [address], [place] [address], Ph. Attender: Doroteo Stewart MD [place] - [facility] 10/29/2019 12:00:00 AM EDT LONNIE ([facility]) [facility] [address] [facility] [address] 10/29/2019 12:00:00 AM EDT eC ([facility]) Doroteo Stewart MD: [address], [place] [address], Ph. Attender: Doroteo Stewart MD [place] - [facility] 10/29/2019 12:00:00 AM EDT LONNIE ([facility]) Doroteo Stewart MD: [address], [address], [place] [address], Ph. [phone] Attender: Doroteo [place] - [facility] 10/26/2019 12:00:00 AM EDT LONNIE ([facility]) Doroteo Stewart MD: [address], [address], [place] [address], Ph. [phone] Attender: Doroteo [place] MD [place] - [facility] 10/26/2019 12:00:00 AM EDT LONNIE ([facility]) Doroteo Stewart MD: [address], [address], [place] [address], Ph. [phone] Attender: Doroteo [place] - [facility] 10/26/2019 12:00:00 AM EDT LONNIE ([facility]) Doroteo Stewart MD: [address], [address], [place] [address], Ph. [phone] Attender: Doroteo [place] - [facility] - [facility] 10/26/2019 12:00:00 AM EDT LONNIE ([facility]) Doroteo Stewart MD: [address], [address], [place] [address], Ph. [phone] Attender: Doroteo [place] - [facility] - [facility] 10/26/2019 12:00:00 AM EDT LONNIE ([facility]) Doroteo Stewart MD: [address], [address], [place] [address], Ph. [phone] Attender: Doroteo Stewart MD [place] - [facility] 10/26/2019 12:00:00 AM EDT LONNIE ([facility]) Doroteo Stewart MD: [address], [address], [place] [address], Ph. [phone] Attender: Doroteo Stewart [place] - [facility] - [facility] 10/26/2019 12:00:00 AM EDT LONNIE ([facility]) Doroteo Stewart MD: [address], [address], [place] [address], Ph. [phone] Attender: Doroteo [place] - [facility] - [facility] 10/26/2019 12:00:00 AM EDT LONNIE ([facility]) Doroteo Stewart MD: [address], [address], [place] [address], Ph. [phone] Attender: Doroteo [place] - [facility] - [facility] 10/26/2019 12:00:00 AM EDT LONNIE ([facility]) Outpatient [address] [facility], [facility] [address] 10/22/2019 12:00:00 AM EDT eCW1 ([facility]) Doroteo Stewart MD: [address], [address], [place] [address], Ph. [phone] Attender: Doroteo [place] - [facility] - [facility] 2019 12:00:00 AM EDT LONNIE ([facility]) Doroteo Stewart MD: [address], [address], [place] [address], Ph. [phone] Attender: Doroteo [place] - [facility] - [facility] 2019 12:00:00 AM EDT LONNIE ([facility]) Doroteo Stewart MD: [address], [address], [place] [address], Ph. [phone] Attender: Doroteo [place] - [facility] 2019 12:00:00 AM EDT LONNIE ([facility]) Doroteo Stewart MD: [address], [address], [place] [address], Ph. [phone] Attender: Doroteo [place] - [facility] - [facility] 2019 12:00:00 AM EDT LONNIE ([facility]) Doroteo Stewart MD: [address], [address], [place] [address], Ph. [phone] Attender: Doroteo [place] MD [place] - [facility] Office 2019 12:00:00 AM EDT LONNIE ([facility]) Doroteo Stewart MD: [address], [address], [place] [address], Ph. [phone] Attender: Doroteo [place] MD [place] - [facility] Office 2019 12:00:00 AM EDT LONNIE ([facility]) Doroteo Stewart MD: [address], [address], [place] [address], Ph. [phone] Attender: Doroteo [place] - [facility] 2019 12:00:00 AM EDT LONNIE ([facility]) Doroteo Stewart MD: [address], [address], [place] [address], Ph. [phone] Attender: Doroteo [place] MD [place] - [facility] 2019 12:00:00 AM EDT LONNIE ([facility]) Doroteo Stewart MD: [address], [address], [place] [address], Ph. [phone] Attender: Doroteo [place] - [facility] 2019 12:00:00 AM EDT LONNIE ([facility]) Doroteo Stewart MD: [address], [address], [place] [address], Ph. [phone] Attender: Doroteo Stewart MD [place] - [facility] 2019 12:00:00 AM EDT LONNIE ([facility]) Summer Yeung, GLASS LATHE OPERATOR: [address], [place] [address], Ph. Attender: Summer Yeung [facility] - [facility] 09/16/2019 12:00:00 AM EDT IVANIA GRIGGS ([facility]) Summer Yeung, GLASS LATHE OPERATOR: [address], [place] [address], Ph. Attender: Summer Yeung [facility] - [facility] 09/16/2019 12:00:00 AM EDT ATHE NA ([facility]) Summer Yeung, GLASS LATHE OPERATOR: [address], [address], [place] [address], Ph. Attender: Summer Yeung [facility] 09/16/2019 12:00:00 AM EDT ATHE NA ([facility]) Summer Yeung, GLASS LATHE OPERATOR: [address], [address], [place] [address], Ph. Attender: Summer Yeung [facility] 09/16/2019 12:00:00 AM EDT ATHE NA ([facility]) Smumer Yeung, GLASS LATHE OPERATOR: [address], [place] [address], Ph. Attender: Summer Yeung [facility] 09/16/2019 12:00:00 AM EDT ATHE NA ([facility]) Summer Yeung, GLASS LATHE OPERATOR: [address], [address], [place] [address], Ph. Attender: Summer Yeung [facility] 09/16/2019 12:00:00 AM EDT ATHE NA ([facility]) Summer Yeung, GLASS LATHE OPERATOR: [address], [address], [place] [address], Ph. Attender: Summer Halekeaton [facility] 09/16/2019 12:00:00 AM EDT ATHE NA ([facility]) Summer Yeung, GLASS LATHE OPERATOR: [address], [address], [place] [address], Ph. Attender: Summer Yeung [facility] - [facility] 09/16/2019 12:00:00 AM EDT ATHE NA ([facility]) Summer Yeung, GLASS LATHE OPERATOR: [address], [place] [address], Ph. Attender: Summer Yeung [facility] 09/16/2019 12:00:00 AM EDT ATHE NA ([facility]) Summer Yeung, GLASS LATHE OPERATOR: [address], [address], [place] [address], Ph. Attender: Summer Yeung [facility] - [facility] 09/16/2019 12:00:00 AM EDT ATHE NA ([facility]) Summer Yeung, GLASS LATHE OPERATOR: [address], [address], [place] [address], Ph. Attender: Summer Yeung [facility] - [facility] 09/16/2019 12:00:00 AM EDT ATHE NA ([facility]) Summer Yeung, GLASS LATHE OPERATOR: [address], [place] [address], Ph. Attender: Summer Yeung [facility] - [facility] 08/31/2019 12:00:00 AM EDT LONNIE ([facility]) Summer Yeung, GLASS LATHE OPERATOR: [address], [place] [address], Ph. Attender: Summer Yeung [facility] - [facility] 08/31/2019 12:00:00 AM EDT LONNIE ([facility]) Summer Yeung, GLASS LATHE OPERATOR: [address], [place] [address], Ph. Attender: Summer Yeung CUSTOM SKI MAKER [place] - [facility] 08/31/2019 12:00:00 AM EDT LONNIE ([facility]) Summer Yeung, GLASS LATHE OPERATOR: [address], [place] [address], Ph. Attender: Summer Yeung CUSTOM SKI MAKER [place] - [facility] 08/31/2019 12:00:00 AM EDT LONNIE ([facility]) Summer Yeung, GLASS LATHE OPERATOR: [address], [place] [address], Ph. Attender: Summer Yeung [facility] - [facility] 08/31/2019 12:00:00 AM EDT LONNIE ([facility]) Summer Yeung, GLASS LATHE OPERATOR: [address], [place] [address], Ph. Attender: Summer Yeung [employer]OM [employer] MA[employer] [place] - [facility] 08/31/2019 12:00:00 AM EDT LONNIE ([facility] [facility]) Summer Yeung, GLASS LATHE OPERATOR: [address], [place] [address], Ph. Attender: Summer Yeung [employer] [place] [facility] 08/31/2019 12:00:00 AM EDT LONNIE ([facility]) Summer Yeung, GLASS LATHE OPERATOR: [address], [place] [address], Ph. Attender: Summer Yeung [employer] [place] [facility] 08/31/2019 12:00:00 AM EDT LONNIE ([facility]) Summer Yeung, GLASS LATHE OPERATOR: [address], [place] [address], Ph. Attender: Summer Yeung [facility] - [facility] 08/31/2019 12:00:00 AM EDT LONNIE ([facility]) Summer Yeung, GLASS LATHE OPERATOR: [address], [place] [address], Ph. Attender: Summer Yeung [facility] - [facility] 08/31/2019 12:00:00 AM EDT LONNIE ([facility]) Summer Yeung, GLASS LATHE OPERATOR: [address], [place] [address], Ph. Attender: Summer Yeung [facility] - [facility] 08/31/2019 12:00:00 AM EDT LONNIE ([facility]) Summer Yeung, GLASS LATHE OPERATOR: [address], [place] [address], Ph. Attender: Summer Yeung [facility] - [facility] 08/31/2019 12:00:00 AM EDT LONNIE ([facility]) Medications Medication Brand Name Start Date Product Form Dose Route Admi nistrative Instructions Pharmacy Instructions Status Indications Reaction Description Data Source(s) 24 HR Oxybutynin chloride 10 MG Extended Release Oral Tablet Oxybutynin Chloride ER 10 MG Oxybutynin Chloride ER 10 MG 11/11/2019 12:00:00 AM EDT 1.0 {tablet} active Oxybutynin Chloride ER 10 MG eCW1 ([facility]) Myrebtriq 25 MG UNK 10/22/2019 12:00:00 AM EDT 1.0 {tablet} active Myrebtriq 25 MG eCW1 ([facility]) Myrebtriq 25 MG UNK 10/22/2019 12:00:00 AM EDT 1.0 {tablet} active Myrebtriq 25 MG eCW1 ([facility]) Myrebtriq 25 MG UNK 10/22/2019 12:00:00 AM EDT 1.0 {tablet} active Myrebtriq 25 MG eCW1 ([facility]) Insurance Providers Payer name Policy type / Coverage type Policy ID Covered republican ID Covered republican's relationship to pond Policy Pond Plan Information [employer] [id number] SP [id number] U [id number] Self [id number] [employer] [id number] Self [id number] [employer] [place] [id number] 18 [id number] [employer] - PHYSICIAN CO [id number] 18 [id number] [employer] - O/P [id number] 18 [id number] [employer] Commercial [id number] Self [id number] ANSI-Not a Secondary Insurance [id number] Problems, Conditions, and Diagnoses Code Display Name Description Problem Type Effective Dates Data Source(s) N39.43 Dribbling of urine Dribbling following urination Probl em 10/22/2019 12:00:00 AM EDT eCW1 ([facility]) Surgeries/Procedures Procedure Description Date Indications Data Source(s) uro PVR (Post Voiding Residual) Bladder Scan 0 12:00:00 AM EDT eCW1 ([facility]) Results ID Date Data Source [id number] 12/09/2019 12:00:00 AM EDT LONNIE ([facility]) Name Value Range Interpretation Code Description Data Hortencia rce(s) Supporting Document(s) ID Date Data Source [id number] 12/09/2019 12:00:00 AM EDT [facility] Name Value Range Interpretation Code Description Data Hortencia rce(s) Supporting Document(s) SARS-CoV-2 [facility] This lab was ordered by [facility]-COVID19 and reported by [facility]. ID Date Data Source [id number] 12/09/2019 12:00:00 AM EDT LONNIE ([facility]) Name Value Range Interpretation Code Description Data Hortencia rce(s) Supporting Document(s) ID Date Data Source [id number] 11/24/2019 12:00:00 AM EDT LONNIE ([facility]) Name Value Range Interpretation Code Description Data Hortencia rce(s) Supporting Document(s) ID Date Data Source [id number] 11/24/2019 12:00:00 AM EDT LONNIE ([facility]) Name Value Range Interpretation Code Description Data Hortencia rce(s) Supporting Document(s) ID Date Data Source [id number] 11/24/2019 12:00:00 AM EDT LONNIE ([facility]) Name Value Range Interpretation Code Description Data Hortencia rce(s) Supporting Document(s) ID Date Data Source [id number] 11/24/2019 12:00:00 AM EDT [facility] Name Value Range Interpretation Code Description Data Hortencia rce(s) Supporting Document(s) SARS-CoV-2 [facility] This lab was ordered by [facility]-COVID[facility] and reported by [employer]. ID Date Data Source [id number] 11/24/2019 12:00:00 AM EDT LONNIE ([facility]) Name Value Range Interpretation Code Description Data Hortencia rce(s) Supporting Document(s) ID Date Data Source [id number] 11/09/2019 12:00:00 AM EDT LONNIE ([facility]) Name Value Range Interpretation Code Description Data Hortencia rce(s) Supporting Document(s) ID Date Data Source [id number] 11/09/2019 12:00:00 AM EDT LONNIE ([facility]) Name Value Range Interpretation Code Description Data Hortencia rce(s) Supporting Document(s) ID Date Data Source [id number] 11/09/2019 12:00:00 AM EDT LONNIE ([facility]) Name Value Range Interpretation Code Description Data Hortencia rce(s) Supporting Document(s) ID Date Data Source [id number] 11/09/2019 12:00:00 AM EDT LONNIE ([facility]) Name Value Range Interpretation Code Description Data Hortencia rce(s) Supporting Document(s) ID Date Data Source [id number] 11/09/2019 12:00:00 AM EDT LONNIE ([facility]) Name Value Range Interpretation Code Description Data Hortencia rce(s) Supporting Document(s) ID Date Data Source [id number] 11/09/2019 12:00:00 AM EDT LONNIE ([facility]) Name Value Range Interpretation Code Description Data Hortencia rce(s) Supporting Document(s) ID Date Data Source [id number] 11/09/2019 12:00:00 AM EDT [facility] Name Value Range Interpretation Code Description Data Hortencia rce(s) Supporting Document(s) SARS-CoV-2 [facility] This lab was ordered by [facility]-C[facility] and reported by [facility]. ID Date Data Source [id number] 10/26/2019 12:00:00 AM EDT KNIGHTSEN ([facility]) Name Value Range Interpretation Code Description Data Hortencia rce(s) Supporting Document(s) ID Date Data Source [id number] 10/26/2019 12:00:00 AM EDT LONNIE ([facility]) Name Value Range Interpretation Code Description Data Hortencia rce(s) Supporting Document(s) ID Date Data Source [id number] 10/26/2019 12:00:00 AM EDT LONNIE ([facility]) Name Value Range Interpretation Code Description Data Hortencia rce(s) Supporting Document(s) ID Date Data Source [id number] 10/26/2019 12:00:00 AM EDT LONNIE ([facility]) Name Value Range Interpretation Code Description Data Hortencia rce(s) Supporting Document(s) ID Date Data Source [id number] 10/26/2019 12:00:00 AM EDT LONNIE ([facility]) Name Value Range Interpretation Code Description Data Hortencia rce(s) Supporting Document(s) ID Date Data Source [id number] 10/26/2019 12:00:00 AM EDT LONNIE ([facility]) Name Value Range Interpretation Code Description Data Hortencia rce(s) Supporting Document(s) ID Date Data Source [id number] 10/26/2019 12:00:00 AM EDT LONNIE ([facility]) Name Value Range Interpretation Code Description Data Hortencia rce(s) Supporting Document(s) ID Date Data Source [id number] 10/26/2019 12:00:00 AM EDT LONNIE ([facility]) Name Value Range Interpretation Code Description Data Hortencia rce(s) Supporting Document(s) ID Date Data Source [id number] 10/26/2019 12:00:00 AM EDT [facility] Name Value Range Interpretation Code Description Data Hortencia rce(s) Supporting Document(s) SARS-CoV-2 [facility] This lab was ordered by [facility]-COVID[facility] and reported by [employer]. ID Date Data Source [id number] URINALYSIS 10/23/2019 09:09:08 AM EDT eCW1 ([facility]) Name Value Range Interpretation Code Description Data Hortencia rce(s) Supporting Document(s) UA URINALYSIS eCW1 ([facility]) ID Date Data Source URINE CULTURE 10/23/2019 02:21:44 AM EDT eCW1 ([facility]) Name Value Range Interpretation Code Description Data Hortencia rce(s) Supporting Document(s) URINE CULTURE eCW1 ([facility]) ID Date Data Source [id number] 2019 12:00:00 AM EDT LONNIE ([facility]) Name Value Range Interpretation Code Description Data Hortencia rce(s) Supporting Document(s) ID Date Data Source [id number] 2019 12:00:00 AM EDT LONNIE ([facility]) Name Value Range Interpretation Code Description Data Hortencia rce(s) Supporting Document(s) ID Date Data Source [id number] 2019 12:00:00 AM EDT LONNIE ([facility]) Name Value Range Interpretation Code Description Data Hortencia rce(s) Supporting Document(s) ID Date Data Source [id number] 2019 12:00:00 AM EDT LONNIE ([facility]) Name Value Range Interpretation Code Description Data Hortencia rce(s) Supporting Document(s) ID Date Data Source [id number] 2019 12:00:00 AM EDT LONNIE ([facility]) Name Value Range Interpretation Code Description Data Hortencia rce(s) Supporting Document(s) ID Date Data Source [id number] 2019 12:00:00 AM EDT LONNIE ([facility]) Name Value Range Interpretation Code Description Data Hortencia rce(s) Supporting Document(s) ID Date Data Source [id number] 2019 12:00:00 AM EDT LONNIE ([facility]) Name Value Range Interpretation Code Description Data Hortencia rce(s) Supporting Document(s) ID Date Data Source [id number] 2019 12:00:00 AM EDT LONNIE ([facility]) Name Value Range Interpretation Code Description Data Hortencia rce(s) Supporting Document(s) ID Date Data Source [id number] 2019 12:00:00 AM EDT LONNIE ([facility]) Name Value Range Interpretation Code Description Data Hortencia rce(s) Supporting Document(s) ID Date Data Source [id number] 2019 12:00:00 AM EDT [facility] Name Value Range Interpretation Code Description Data Hortencia rce(s) Supporting Document(s) SARS-CoV-2 [facility] This lab was ordered by [facility]-COVID[facility] and reported by [facility]. Procedure Social History Code Duration Value Status Description Data Source(s ) Smoking 10/22/2019 12:00:00 AM EDT Never Smoker completed Never S moker eCW1 ([facility]) Smoking 10/22/2019 12:00:00 AM EDT Never Smoker completed Never S moker eCW1 ([facility]) Smoking 10/22/2019 12:00:00 AM EDT Never Smoker completed Never S moker eCW1 ([facility]) Vital Signs ID Date Data Source UNK Name Value Range Interpretation Code Description Data Source(s) Body mass index (BMI) [Ratio] 27.3 kg/m2 27.3 k g/m2 MED[facility] ([facility] ) Body weight 174.25 [lb_av] 174.25 [lb_av] MEDEN T ([facility] ) Body height 67 [in_i] 67 [in_i] [facility] ([facility] ) 5'7" Body temperature 97.3 [degF] 97.3 [degF] [facility] ([facility] ) Diastolic blood pressure 70 mm[Hg] 70 mm[Hg] eCW1 ([facility]) Systolic blood pressure 110 mm[Hg] 110 mm[Hg] e CW1 ([facility]) Body temperature 97.0 [degF] 97.0 [degF] eCW1 ( [facility]) Respiratory rate 18 /min 18 /min eCW1 ([facility]) Heart rate 60 /min 60 /min eCW1 ([facility]) Body mass index (BMI) [Ratio] 28.39 kg/m2 28.39 kg/m2 eCW1 ([facility]) Body height 66.5 [in_i] 66.5 [in_i] eCW1 ([facility]) Body weight 178.6 [lb_av] 178.6 [lb_av] eCW1 ([facility]) Body weight 165 [lb_av] 165 [lb_av] LONNIE ([facility]) Systolic blood pressure 101 mm[Hg] 101 mm[Hg] A THENA ([facility]) Body mass index (BMI) [Ratio] 26.6 kg/m2 26.6 k g/m2 LONNIE ([facility]) Body height 66 [in_i] 66 [in_i] LONNIE ([facility]) Diastolic blood pressure 58 mm[Hg] 58 mm[Hg] LONNIE ([facility]) Body weight 165 [lb_av] 165 [lb_av] LONNIE ([facility]) Systolic blood pressure 101 mm[Hg] 101 mm[Hg] A THENA ([facility]) Body mass index (BMI) [Ratio] 26.6 kg/m2 26.6 k g/m2 LONNIE ([facility]) Body height 66 [in_i] 66 [in_i] LONNIE ([facility]) Diastolic blood pressure 58 mm[Hg] 58 mm[Hg] LONNIE ([facility]) Body weight 165 [lb_av] 165 [lb_av] LONNIE ([facility]) Systolic blood pressure 101 mm[Hg] 101 mm[Hg] A THENA ([facility]) Body mass index (BMI) [Ratio] 26.6 kg/m2 26.6 k g/m2 LONNIE ([facility]) Body height 66 [in_i] 66 [in_i] LONNIE ([facility]) Diastolic blood pressure 58 mm[Hg] 58 mm[Hg] LONNIE ([facility]) Body weight 165 [lb_av] 165 [lb_av] LONNIE ([facility]) Systolic blood pressure 101 mm[Hg] 101 mm[Hg] A THENA ([facility]) Body mass index (BMI) [Ratio] 26.6 kg/m2 26.6 k g/m2 LONNIE ([facility]) Body height 66 [in_i] 66 [in_i] LONNIE ([facility]) Diastolic blood pressure 58 mm[Hg] 58 mm[Hg] LONNIE ([facility]) Body weight 165 [lb_av] 165 [lb_av] LONNIE ([facility]) Systolic blood pressure 101 mm[Hg] 101 mm[Hg] A THENA ([facility]) Body mass index (BMI) [Ratio] 26.6 kg/m2 26.6 k g/m2 LONNIE ([facility]) Body height 66 [in_i] 66 [in_i] LONNIE ([facility]) Diastolic blood pressure 58 mm[Hg] 58 mm[Hg] LONNIE ([facility]) Body weight 165 [lb_av] 165 [lb_av] LONNIE ([facility]) Systolic blood pressure 101 mm[Hg] 101 mm[Hg] A THENA ([facility]) Body mass index (BMI) [Ratio] 26.6 kg/m2 26.6 k g/m2 LONNIE ([facility]) Body height 66 [in_i] 66 [in_i] LONNIE ([facility]) Diastolic blood pressure 58 mm[Hg] 58 mm[Hg] LONNIE ([facility]) Body weight 165 [lb_av] 165 [lb_av] LONNIE ([facility]) Systolic blood pressure 101 mm[Hg] 101 mm[Hg] A THENA ([facility]) Body mass index (BMI) [Ratio] 26.6 kg/m2 26.6 k g/m2 LONNIE ([facility]) Body height 66 [in_i] 66 [in_i] LONNIE ([facility]) Diastolic blood pressure 58 mm[Hg] 58 mm[Hg] LONNIE ([facility]) Body weight 165 [lb_av] 165 [lb_av] LONNIE ([facility]) Systolic blood pressure 101 mm[Hg] 101 mm[Hg] A THENA ([facility]) Body mass index (BMI) [Ratio] 26.6 kg/m2 26.6 k g/m2 LONNIE ([facility]) Body height 66 [in_i] 66 [in_i] LONNIE ([facility]) Diastolic blood pressure 58 mm[Hg] 58 mm[Hg] LONNIE ([facility]) Body weight 165 [lb_av] 165 [lb_av] LONNIE ([facility]) Systolic blood pressure 101 mm[Hg] 101 mm[Hg] A THENA ([facility]) Body mass index (BMI) [Ratio] 26.6 kg/m2 26.6 k g/m2 LONNIE ([facility]) Body height 66 [in_i] 66 [in_i] LONNIE ([facility]) Diastolic blood pressure 58 mm[Hg] 58 mm[Hg] LONNIE ([facility]) Body weight 165 [lb_av] 165 [lb_av] LONNIE ([facility]) Systolic blood pressure 101 mm[Hg] 101 mm[Hg] A THENA ([facility]) Body mass index (BMI) [Ratio] 26.6 kg/m2 26.6 k g/m2 LONNIE ([facility]) Body height 66 [in_i] 66 [in_i] LONNIE ([facility]) Diastolic blood pressure 58 mm[Hg] 58 mm[Hg] LONNIE ([facility]) Body weight 165 [lb_av] 165 [lb_av] LONNIE ([facility]) Systolic blood pressure 101 mm[Hg] 101 mm[Hg] A THENA ([facility]) Body mass index (BMI) [Ratio] 26.6 kg/m2 26.6 k g/m2 LONNIE ([facility]) Body height 66 [in_i] 66 [in_i] LONNIE ([facility]) Diastolic blood pressure 58 mm[Hg] 58 mm[Hg] LONNIE ([facility]) Patient Treatment Plan of Care Planned Activity Planned Date Details Description Data Source (s) 24 HR Oxybutynin chloride 10 MG Extended Release Oral Tablet 11/11/2019 12:00:00 AM EDT eCW1 ([facility]) Myrebtriq 25 MG 10/22/2019 12:00:00 AM EDT eCW1 ([facility]) Myrebtriq 25 MG 10/22/2019 12:00:00 AM EDT eCW1 ([facility]) Myrebtriq 25 MG 10/22/2019 12:00:00 AM EDT eCW1 ([facility])
[2020-07-07] MEDS ORDERED: hydrOXYzine 25 MG TAB PO PRN (14:30)
[2020-07-07] MEDS ORDERED: MAALOX 30 ML SUSP *UDC PO PRN (14:30)
[2020-07-07] MEDS ORDERED: ACETAMINOPHEN TAB 650MG DOSE (2X325MG) PO PRN (14:30)
[2020-07-07] MEDS ORDERED: MOM 30ML SUSPENSION UDC PO PRN (14:30)
[2020-07-07] MEDS ORDERED: traZODone 50 MG TAB PO PRN (14:30)
--- OUTSIDE RECORDS SUMMARY | 2020-07-07 14:37 | CCD ---
Author Author [facility] Organization [facility] Address Unknown Phone Unavailable Care Team Providers Care Phlebotomy Coordinator Name Role Phone Jumalon, M Summer APARTMENT COMMUNITY ASSISTANT MANAGER Unavailable Unavailable Jumalon, M Summer APARTMENT COMMUNITY ASSISTANT MANAGER Unavailable Unavailable Jumalon, M Summer APARTMENT COMMUNITY ASSISTANT MANAGER Unavailable Unavailable Jumalon, M Summer APARTMENT COMMUNITY ASSISTANT MANAGER Unavailable Unavailable Jumalon, M Summer APARTMENT COMMUNITY ASSISTANT MANAGER Unavailable Unavailable Jumalon, M Summer APARTMENT COMMUNITY ASSISTANT MANAGER Unavailable Unavailable Jumalon, M Summer APARTMENT COMMUNITY ASSISTANT MANAGER Unavailable Unavailable Jumalon, M Summer APARTMENT COMMUNITY ASSISTANT MANAGER Unavailable Unavailable Jumalon, M Summer APARTMENT COMMUNITY ASSISTANT MANAGER Unavailable Unavailable Jumalon, M Summer APARTMENT COMMUNITY ASSISTANT MANAGER Unavailable Unavailable Jumalon, M Summer APARTMENT COMMUNITY ASSISTANT MANAGER Unavailable Unavailable Jumalon, M Summer APARTMENT COMMUNITY ASSISTANT MANAGER Unavailable Unavailable Jumalon, M Summer APARTMENT COMMUNITY ASSISTANT MANAGER Unavailable Unavailable Jumalon, M Summer APARTMENT COMMUNITY ASSISTANT MANAGER Unavailable Unavailable Jumalon, M Summer APARTMENT COMMUNITY ASSISTANT MANAGER Unavailable Unavailable Jumalon, M Summer APARTMENT COMMUNITY ASSISTANT MANAGER Unavailable Unavailable Jumalon, M Summer APARTMENT COMMUNITY ASSISTANT MANAGER Unavailable Unavailable Jumalon, M Summer APARTMENT COMMUNITY ASSISTANT MANAGER Unavailable Unavailable Jumalon, M Summer APARTMENT COMMUNITY ASSISTANT MANAGER Unavailable Unavailable Jumalon, M Summer APARTMENT COMMUNITY ASSISTANT MANAGER Unavailable Unavailable Jumalon, M Summer APARTMENT COMMUNITY ASSISTANT MANAGER Unavailable Unavailable Jumalon, M Summer APARTMENT COMMUNITY ASSISTANT MANAGER Unavailable Unavailable Jumalon, M Summer APARTMENT COMMUNITY ASSISTANT MANAGER Unavailable Unavailable Jumalon, M Summer APARTMENT COMMUNITY ASSISTANT MANAGER Unavailable Unavailable Jumalon, M Summer APARTMENT COMMUNITY ASSISTANT MANAGER Unavailable Unavailable Jumalon, M Summer APARTMENT COMMUNITY ASSISTANT MANAGER Unavailable Unavailable Jumalon, M Summer APARTMENT COMMUNITY ASSISTANT MANAGER Unavailable Unavailable Jumalon, M Summer APARTMENT COMMUNITY ASSISTANT MANAGER Unavailable Unavailable MCELHERAN, CHLOÉ PA Unavailable Unavailable [...] is protected by Article 27-F of the [facility] Public Health law. If you continue you may have access to information: Regarding HIV / AIDS; Provided by facilities licensed or operated by the [facility] Office of Mental Health; or Provided by the [facility] Office for People With Developmental Disabilities. If such information is present, then the following [facility] mandated warning applies: This information has been [...] law may result in a fine or shelter sentence or both. A general authorization for the release of medical or other information is NOT sufficient authorization for further disc losure. Family History Family Member Name Family Member Gender Family Member Status Date o f Status Description Data Source(s) Unknown Female Problem MEDENT ([facility]) Encounters Encounter Providers Location Date Indications Data Source(s ) OFFICE OUTPATIENT NEW 30 MINUTES Attender: CHLOÉ ORLANDO Physical Therapy 03/24/2020 09:30:00 AM EST MEDENT ([facility]) Summer Yeung, HEAD OF MARKETING ADOMETRY: [address] [facility] [address], [place] [address], Ph. [facility]: [facility] 12/30/2019 12:00:00 AM EDT IVANIA GRIGGS ([facility]) Doroteo Stewart MD: [address] [facility] [address], [place] [address], Ph. Attender: Doroteo Stewart MD [facility] Office 12/14/2019 12:00:00 AM EDT LONNIE ([facility]) Doroteo Stewart MD: [address]366 [facility] [address], [place] [address], Ph. Attender: Doroteo Stewart MD [facility] 12/14/2019 12:00:00 AM EDT LONNIE ([facility]) Doroteo Stewart MD: [address], [address], [place] [address], Ph. [phone] Attender: Doroteo Stewart MD [place] - [facility] 12/09/2019 12:00:00 AM EDT LONNIE ([facility]) Doroteo Stewart MD: [address], [address], [place] [address], Ph. [phone] Attender: Doroteo Stewart MD [place] - [facility] 12/09/2019 12:00:00 AM EDT LONNIE ([facility]) Doroteo Stewart MD: [address], [address], [place] [address], Ph. [phone] Attender: Doroteo Stewart MD [place] - [facility] 12/09/2019 12:00:00 AM EDT LONNIE ([facility]) Doroteo Stewart MD: [address], [address], [place] [address], Ph. Attender: Doroteo Stewart MD [place] - [facility] 11/27/2019 12:00:00 AM EDT LONNIE ([facility]) Doroteo Stewart MD: [address], [address], [place] [address], Ph. Attender: Doroteo Stewart MD [place] - [facility] 11/27/2019 12:00:00 AM EDT LONNIE ([facility]) Doroteo Stewart MD: [address], [address], [place] [address], Ph. Attender: Doroteo AUSTIN - [facility] 11/27/2019 12:00:00 AM EDT LONNIE ([facility]) Doorteo Stewart MD: [address], [address], [place] [address], Ph. Attender: Doroteo Stewart MD [place] - [facility] 11/27/2019 12:00:00 AM EDT LONNIE ([facility]) Doroteo Stewart MD: [address]83 [address], [address], [place] [address], Ph. [phone] Attender: Doroteo Stewart MD [place] - [facility] 11/24/2019 12:00:00 AM EDT LONNIE ([facility]) Doroteo Stewart MD: [address]67 [address], [address], [place] [address], Ph. [phone] Attender: Doroteo AUSTIN - [facility] 11/24/2019 12:00:00 AM EDT LONNIE ([facility]) Doroteo Setwart MD: [address], [address], [place] [address], Ph. [phone] Attender: Doroteo Stewart MD [place] - [facility] 11/24/2019 12:00:00 AM EDT LONNIE ([facility]) Doroteo Stewart MD: [address], [address], [place] [address], Ph. [phone] Attender: Doroteo Stewart MD [place] - [facility] 11/24/2019 12:00:00 AM EDT LONNIE ([facility]) Doroteo Stewart MD: [address]671 [address], [address], [place] [address], Ph. [phone] Attender: Doroteo AUSTIN - [facility] 11/24/2019 12:00:00 AM EDT LONNIE ([facility]) Doroteo Stewart MD: [address], [address], [place] [address], Ph. Attender: Doroteo Stewart MD [place] - [facility] 11/12/2019 12:00:00 AM EDT LONNIE ([facility]) Doroteo Stewart MD: [address], [address], [place] [address], Ph. Attender: Doorteo Stewart MD [place] - [facility] 11/12/2019 12:00:00 AM EDT LONNIE ([facility]) Doroteo Stewart MD: [address]652 [address], [address], [place] [address], Ph. Attender: Doroteo Stewart MD [place] - [facility] 11/12/2019 12:00:00 AM EDT LONNIE ([facility]) Doroteo Stewart MD: [address], [address], [place] [address], Ph. Attender: Doroteo Stewart MD [place] - [facility] 11/12/2019 12:00:00 AM EDT LONNIE ([facility]) Doroteo Stewart MD: [address], [address], [place] [address], Ph. Attender: Doroteo Stewart MD [place] - [facility] 11/12/2019 12:00:00 AM EDT LONNIE ([facility]) Doroteo Stewart MD: [address], [place] [address], Ph. Attender: Doroteo Stewart MD [place] - [facility] 11/12/2019 12:00:00 AM EDT LONNIE ([facility]) Unknown [address] [facility], [facility] [address] 11/11/2019 12:00:00 AM EDT eCW1 ([facility]) Doroteo Stewart MD: [address], [address], [place] [address], Ph. [phone] Attender: Doroteo Stewart MD [place] - [facility] - [facility] 11/09/2019 12:00:00 AM EDT LONNIE ([facility]) Doroteo Stewart MD: [address], [address], [place] [address], Ph. [phone] Attender: Doroteo Stewart MD [place] - [facility] - [facility] 11/09/2019 12:00:00 AM EDT LONNIE ([facility]) Doroteo Stewart MD: [address], [address], [place] [address], Ph. [phone] Attender: Doroteo AUSTIN - [facility] - [facility] 11/09/2019 12:00:00 AM EDT LONNIE ([facility]) Doroteo Stewart MD: [address]46 [address], [address], [place] [address], Ph. [phone] Attender: Doroteo Stewart MD [place] - [facility] - [facility] 11/09/2019 12:00:00 AM EDT LONNIE ([facility]) Doroteo Stewart MD: [address], [address], [place] [address], Ph. [phone] Attender: Doroteo Stewart MD [place] - [facility] - [facility] 11/09/2019 12:00:00 AM EDT LONNIE ([facility]) Doroteo Stewart MD: [address], [address], [place] [address], Ph. [phone] Attender: Doroteo Stewart MD [place] - [facility] Office 11/09/2019 12:00:00 AM EDT LONNIE ([facility]) Doroteo Stewart MD: [address]39 [address], [address], [place] [address], Ph. [phone] Attender: Doroteo Stewart MD [place] - [facility] 11/09/2019 12:00:00 AM EDT LONNIE ([facility]) Doroteo Stewart MD: [address]227 [address], [address], [place] [address], Ph. Attender: Doroteo Stewart MD [place] - [facility] 10/29/2019 12:00:00 AM EDT LONNIE ([facility]) Doroteo Stewart MD: [address]67 [address], [address], [place] [address], Ph. Attender: Doroteo Stewart MD [place] - [facility] 10/29/2019 12:00:00 AM EDT LONNIE ([facility]) Doroteo Stewart MD: [address]46 [address], [address], [place] [address], Ph. Attender: Doroteo Stewart MD [place] - [facility] 10/29/2019 12:00:00 AM EDT LONNIE ([facility]) Doroteo Stewart MD: [address]246 [address], [address], [place] [address], Ph. Attender: Doroteo AUSTIN - [facility] 10/29/2019 12:00:00 AM EDT LONNIE ([facility]) Doroteo Stewart MD: [address], [address], [place] [address], Ph. Attender: Doroteo AUSTIN - [facility] 10/29/2019 12:00:00 AM EDT LONNIE ([facility]) Doroteo Stewart MD: [address]396 [address], [address], [place] [address], Ph. Attender: Doroteo Stewart MD [place] - [facility] Office 10/29/2019 12:00:00 AM EDT LONNIE ([facility]) Doroteo Stewart MD: [address]187 [address], [address], [place] [address], Ph. Attender: Doroteo Stewart MD [place] - [facility] 10/29/2019 12:00:00 AM EDT LONNIE ([facility]) [facility] [address] [facility] [address] 10/29/2019 12:00:00 AM EDT eC ([facility]) Doroteo Stewart MD: [address], [place] [address], Ph. Attender: Doroteo Stewart MD [place] - [facility] 10/29/2019 12:00:00 AM EDT LONNIE ([facility]) Doroteo Stewart MD: [address]154 [address], [address], [place] [address], Ph. [phone] Attender: Doroteo AUSTIN - [facility] 10/26/2019 12:00:00 AM EDT LONNIE ([facility]) Doroteo Stewart MD: [address], [address], [place] [address], Ph. [phone] Attender: Doroteo Stewart MD [place] - [facility] 10/26/2019 12:00:00 AM EDT LONNIE ([facility]) Doroteo Stewart MD: [address]55 [address], [address], [place] [address], Ph. [phone] Attender: Doroteo AUSTIN - [facility] 10/26/2019 12:00:00 AM EDT LONNIE ([facility]) Doroteo Stewart MD: [address], [address], [place] [address], Ph. [phone] Attender: Doroteo Stewart MD [place] - [facility] - [facility] 10/26/2019 12:00:00 AM EDT LONNIE ([facility]) Doroteo Stewart MD: [address]793 [address], [address], [place] [address], Ph. [phone] Attender: Doroteo Stewart MD [place] - [facility] - [facility] 10/26/2019 12:00:00 AM EDT LONNIE ([facility]) Doroteo Stewart MD: [address]18 [address], [address], [place] [address], Ph. [phone] Attender: Doroteo Stewart MD [place] - [facility] 10/26/2019 12:00:00 AM EDT LONNIE ([facility]) Doroteo Stewart MD: [address]122 [address], [address], [place] [address], Ph. [phone] Attender: Doroteo Stewart MD [place] - [facility] - [facility] 10/26/2019 12:00:00 AM EDT LONNIE ([facility]) Doroteo Stewart MD: [address]8 [address], [address], [place] [address], Ph. [phone] Attender: Doroteo Stewart MD [place] - [facility] - [facility] 10/26/2019 12:00:00 AM EDT LONNIE ([facility]) Doroteo Stewart MD: [address]128 [address], [address], [place] [address], Ph. [phone] Attender: Doroteo Stewart MD [place] - [facility] - [facility] 10/26/2019 12:00:00 AM EDT LONNIE ([facility]) Outpatient [address] [facility], [facility] [address] 10/22/2019 12:00:00 AM EDT eCW1 ([facility]) Doroteo Stewart MD: [address]885 [address], [address], [place] [address], Ph. [phone] Attender: Doroteo Stewart MD [place] - [facility] - [facility] 2019 12:00:00 AM EDT LONNIE ([facility]) Doroteo Stewart MD: [address]8 [address], [address], [place] [address], Ph. [phone] Attender: Doroteo Stewart MD [place] - [facility] - [facility] 2019 12:00:00 AM EDT LONNIE ([facility]) Doroteo Stewart MD: [address]09 [address], [address], [place] [address], Ph. [phone] Attender: Doroteo Stewart MD [place] - [facility] 2019 12:00:00 AM EDT LONNIE ([facility]) Doroteo Stewart MD: [address], [address], [place] [address], Ph. [phone] Attender: Doroteo Stewart MD [place] - [facility] - [facility] 2019 12:00:00 AM EDT LONNIE ([facility]) Doroteo Stewart MD: [address], [address], [place] [address], Ph. [phone] Attender: Doroteo Stewart MD [place] - [facility] Office 2019 12:00:00 AM EDT LONNIE ([facility]) Doroeto Stewart MD: [address]183 [address], [address], [place] [address], Ph. [phone] Attender: Doroteo Stewart MD [place] - [facility] 2019 12:00:00 AM EDT LONNIE ([facility]) Doroteo Stewart MD: [address]126 [address], [address], [place] [address], Ph. [phone] Attender: Doroteo Stewart MD [place] - [facility] 2019 12:00:00 AM EDT LONNIE ([facility]) Doroteo Stewart MD: [address]95 [address], [address], [place] [address], Ph. [phone] Attender: Doroteo Stewart MD [place] - [facility] 2019 12:00:00 AM EDT LONNIE ([facility]) Doroteo Stewart MD: [address]329 [address], [address], [place] [address], Ph. [phone] Attender: Doroteo Stewart MD [place] - [facility] 2019 12:00:00 AM EDT LONNIE ([facility]) Doroteo Stewart MD: [address], [address], [place] [address], Ph. [phone] Attender: Doroteo Stewart MD [place] - [facility] 2019 12:00:00 AM EDT LONNIE ([facility]) Summer Yeung, HEAD OF MARKETING ADOMETRY: [address], [place] [address], Ph. Attender: Summer Yeung [facility] - [facility] 09/16/2019 12:00:00 AM EDT IVANIA GRIGGS ([facility]) Summer Yeung, HEAD OF MARKETING ADOMETRY: [address], [place] [address], Ph. Attender: Summer Yeung [facility] - [facility] 09/16/2019 12:00:00 AM EDT ATHE NA ([facility]) Summer Yeung, HEAD OF MARKETING ADOMETRY: [address], [address], [place] [address], Ph. Attender: Summer Yeung [facility] 09/16/2019 12:00:00 AM EDT ATHE NA ([facility]) Summer Yeung, HEAD OF MARKETING ADOMETRY: [address], [address], [place] [address], Ph. Attender: Summer Yeung [facility] 09/16/2019 12:00:00 AM EDT ATHE NA ([facility]) Summer Yeung, HEAD OF MARKETING ADOMETRY: [address], [place] [address], Ph. Attender: Summer Yeung [facility] 09/16/2019 12:00:00 AM EDT ATHE NA ([facility]) Summer Yeung, HEAD OF MARKETING ADOMETRY: [address], [address], [place] [address], Ph. Attender: Summer Yeung [facility] 09/16/2019 12:00:00 AM EDT ATHE NA ([facility]) Summer Yeung, HEAD OF MARKETING ADOMETRY: [address], [address], [place] [address], Ph. Attender: Summer Halekeaton [facility] 09/16/2019 12:00:00 AM EDT ATHE NA ([facility]) Summer Yeung, HEAD OF MARKETING ADOMETRY: [address], [address], [place] [address], Ph. Attender: Summer Yeung [facility] - [facility] 09/16/2019 12:00:00 AM EDT ATHE NA ([facility]) Summer Yeung, HEAD OF MARKETING ADOMETRY: [address], [place] [address], Ph. Attender: Summer Yeung [facility]UNITY [facility] - [facility] 09/16/2019 12:00:00 AM EDT ATHE NA ([facility]) Summer Yeung, HEAD OF MARKETING ADOMETRY: [address], [address], [place] [address], Ph. Attender: Summer Yeung [facility] - [facility] 09/16/2019 12:00:00 AM EDT ATHE NA ([facility]) Summer Yeung, HEAD OF MARKETING ADOMETRY: [address], [address], [place] [address], Ph. Attender: Summer Yeung [facility] - [facility] 09/16/2019 12:00:00 AM EDT ATHE NA ([facility]) Summer Yeung, HEAD OF MARKETING ADOMETRY: [address], [place] [address], Ph. Attender: Summer Yeung APARTMENT COMMUNITY [facility] - [facility] 08/31/2019 12:00:00 AM EDT LONNIE ([facility]) Summer Yeung, HEAD OF MARKETING ADOMETRY: [address], [place] [address], Ph. Attender: Summer Yeung [facility]ITY [facility] - [facility] 08/31/2019 12:00:00 AM EDT LONNIE ([facility]) Summer Yeung, HEAD OF MARKETING ADOMETRY: [address], [place] [address], Ph. Attender: Summer Yeung APARTMENT COMMUNITY ASSISTANT MANAGER [place] - [facility] 08/31/2019 12:00:00 AM EDT LONNIE ([facility]) Summer Yeung, HEAD OF MARKETING ADOMETRY: [address], [place] [address], Ph. Attender: Summer Yeung APARTMENT COMMUNITY ASSISTANT MANAGER [place] - [facility] 08/31/2019 12:00:00 AM EDT LONNIE ([facility]) Summer Yeung, HEAD OF MARKETING ADOMETRY: [address], [place] [address], Ph. Attender: Summer Yeung [facility]ITY [facility] - [facility] 08/31/2019 12:00:00 AM EDT LONNIE ([facility]) Summer Yeung, HEAD OF MARKETING ADOMETRY: [address], [place] [address], Ph. Attender: Summer Yeung APARTMENT COMMUNITY ASSISTANT MANAGER [place] - [facility] 08/31/2019 12:00:00 AM EDT LONNIE ([facility]) Summer Yeung, HEAD OF MARKETING ADOMETRY: [address], [place] [address], Ph. Attender: Summer Yeung APARTMENT COMMUNITY ASSISTANT MANAGER [place] - [facility] 08/31/2019 12:00:00 AM EDT LONNIE ([facility]) Summer Yeung, HEAD OF MARKETING ADOMETRY: [address], [place] [address], Ph. Attender: Summer Yeung APARTMENT COMMUNITY ASSISTANT MANAGER [place] - [facility] 08/31/2019 12:00:00 AM EDT LONNIE ([facility]) Summer Yeung, HEAD OF MARKETING ADOMETRY: [address], [place] [address], Ph. Attender: Summer [facility] [facility] - [facility] Office 08/31/2019 12:00:00 AM EDT LONNIE ([facility]) Summer Yeung, HEAD OF MARKETING ADOMETRY: [address], [place] [address], Ph. Attender: Summer Yeung [facility] - [facility] Office 08/31/2019 12:00:00 AM EDT LONNIE ([facility]) Summer Yeung, HEAD OF MARKETING ADOMETRY: [address], [place] [address], Ph. Attender: Summer Yeung [facility] - [facility] 08/31/2019 12:00:00 AM EDT LONNIE ([facility]) Summer Yeung, HEAD OF MARKETING ADOMETRY: [address], [place] [address], Ph. Attender: Summer Yeung [facility] - [facility] 08/31/2019 12:00:00 AM EDT LONNIE ([facility]) Medications Medication Brand Name Start Date Product Form Dose Route Admi nistrative Instructions Pharmacy Instructions Status Indications Reaction Description Data Source(s) 24 HR Oxybutynin chloride 10 MG Extended Release Oral Tablet Oxybutynin Chloride ER 10 MG Oxybutynin Chloride ER 10 MG 11/11/2019 12:00:00 AM EDT 1.0 {tablet} active Oxybutynin Chloride ER 10 MG eCW1 ([facility]) Myrebtriq 25 MG UNK 10/22/2019 12:00:00 AM EDT 1.0 {tablet} active Myrebtriq 25 MG eCW1 ([facility]) Myrebtriq 25 MG UNK 10/22/2019 12:00:00 AM EDT 1.0 {tablet} active Myrebtriq 25 MG eCW1 ([facility]) Myrebtriq 25 MG UNK 10/22/2019 12:00:00 AM EDT 1.0 {tablet} active Myrebtriq 25 MG eCW1 ([facility]) Insurance Providers Payer name Policy type / Coverage type Policy ID Covered green party ID Covered green party's relationship to pond Policy Pond Plan Information [employer]Y [id number] SP [id number] U [id number] Self [id number] [employer] [id number] [place] [id number] [place] [id number] 18 [id number] [employer] [place] [id number] 18 [id number] [employer] - O/P [id number] 18 [id number] [employer] Commercial [id number] Self [id number] ANSI-Not a Secondary Insurance [id number] Problems, Conditions, and Diagnoses Code Display Name Description Problem Type Effective Dates Data Source(s) N39.43 Dribbling of urine Dribbling following urination Probl em 10/22/2019 12:00:00 AM EDT eCW1 ([facility]) Surgeries/Procedures Procedure Description Date Indications Data Source(s) uro PVR (Post Voiding Residual) Bladder Scan 0 12:00:00 AM EDT eCW1 ([facility]) Results ID Date Data Source [id number] 12/09/2019 12:00:00 AM EDT LONNIE ([facility]) Name Value Range Interpretation Code Description Data Hortencia rce(s) Supporting Document(s) ID Date Data Source [id number] 12/09/2019 12:00:00 AM EDT [facility] Name Value Range Interpretation Code Description Data Hortencia rce(s) Supporting Document(s) SARS-CoV-2 [facility] This lab was ordered by [facility]-COVID[facility] and reported by [facility]. ID Date Data Source [id number] 12/09/2019 12:00:00 AM EDT [place] ([facility]) Name Value Range Interpretation Code Description Data Hortencia rce(s) Supporting Document(s) ID Date Data Source [id number] 11/24/2019 12:00:00 AM EDT LONNIE ([facility]) Name Value Range Interpretation Code Description Data Hortencia rce(s) Supporting Document(s) ID Date Data Source [id number] 11/24/2019 12:00:00 AM EDT [place] ([facility]) Name Value Range Interpretation Code Description Data Hortencia rce(s) Supporting Document(s) ID Date Data Source [id number] 11/24/2019 12:00:00 AM EDT [place] ([facility]) Name Value Range Interpretation Code Description Data Hortencia rce(s) Supporting Document(s) ID Date Data Source [id number] 11/24/2019 12:00:00 AM EDT [facility] Name Value Range Interpretation Code Description Data Hortencia rce(s) Supporting Document(s) SARS-CoV-2 [facility] This lab was ordered by [facility] and reported by [facility]. ID Date Data Source [id number] 11/24/2019 12:00:00 AM EDT LONNIE ([facility]) Name Value Range Interpretation Code Description Data Hortencia rce(s) Supporting Document(s) ID Date Data Source [id number] 11/09/2019 12:00:00 AM EDT [place]ONN[place] ([facility]) Name Value Range Interpretation Code Description Data Hortencia rce(s) Supporting Document(s) ID Date Data Source [id number] 11/09/2019 12:00:00 AM EDT [place] ([facility]) Name Value Range Interpretation Code Description Data Hortencia rce(s) Supporting Document(s) ID Date Data Source [id number] 11/09/2019 12:00:00 AM EDT [place] ([facility]) Name Value Range Interpretation Code Description Data Hortencia rce(s) Supporting Document(s) ID Date Data Source [id number] 11/09/2019 12:00:00 AM EDT [place]ONNIE ([facility]) Name Value Range Interpretation Code Description Data Hortencia rce(s) Supporting Document(s) ID Date Data Source [id number] 11/09/2019 12:00:00 AM EDT [place] ([facility]) Name Value Range Interpretation Code Description Data Hortencia rce(s) Supporting Document(s) ID Date Data Source [id number] 11/09/2019 12:00:00 AM EDT [place]ONNIE ([facility]) Name Value Range Interpretation Code Description Data Hortencia rce(s) Supporting Document(s) ID Date Data Source [id number] 11/09/2019 12:00:00 AM EDT [facility] Name Value Range Interpretation Code Description Data Hortencia rce(s) Supporting Document(s) SARS-CoV-2 [facility] This lab was ordered by [facility] and reported by [facility]. ID Date Data Source [id number] 10/26/2019 12:00:00 AM EDT [place] ([facility]) Name Value Range Interpretation Code Description Data Hortencia rce(s) Supporting Document(s) ID Date Data Source [id number] 10/26/2019 12:00:00 AM EDT LONNIE ([facility]) Name Value Range Interpretation Code Description Data Hortencia rce(s) Supporting Document(s) ID Date Data Source [id number] 10/26/2019 12:00:00 AM EDT LONNIE ([facility]) Name Value Range Interpretation Code Description Data Hortencia rce(s) Supporting Document(s) ID Date Data Source [id number] 10/26/2019 12:00:00 AM EDT [place]ONNIE ([facility]) Name Value Range Interpretation Code Description Data Hortencia rce(s) Supporting Document(s) ID Date Data Source [id number] 10/26/2019 12:00:00 AM EDT [place] ([facility]) Name Value Range Interpretation Code Description Data Hortencia rce(s) Supporting Document(s) ID Date Data Source [id number] 10/26/2019 12:00:00 AM EDT [place]ONNIE ([facility]) Name Value Range Interpretation Code Description Data Hortencia rce(s) Supporting Document(s) ID Date Data Source [id number] 10/26/2019 12:00:00 AM EDT LONNIE ([facility]) Name Value Range Interpretation Code Description Data Hortencia rce(s) Supporting Document(s) ID Date Data Source [id number] 10/26/2019 12:00:00 AM EDT [place]ONNIE ([facility]) Name Value Range Interpretation Code Description Data Hortencia rce(s) Supporting Document(s) ID Date Data Source [id number] 10/26/2019 12:00:00 AM EDT [facility] Name Value Range Interpretation Code Description Data Hortencia rce(s) Supporting Document(s) SARS-CoV-2 [facility] This lab was ordered by [facility] and reported by [facility]. ID Date Data Source [id number] URINALYSIS 10/23/2019 09:09:08 AM EDT eCW1 ([facility]) Name Value Range Interpretation Code Description Data Hortencia rce(s) Supporting Document(s) UA URINALYSIS eCW1 ([facility]) ID Date Data Source URINE CULTURE 10/23/2019 02:21:44 AM EDT eCW1 ([facility]) Name Value Range Interpretation Code Description Data Hortencia rce(s) Supporting Document(s) URINE CULTURE eCW1 ([facility]) ID Date Data Source [id number] 2019 12:00:00 AM EDT LONNIE ([facility]) Name Value Range Interpretation Code Description Data Hortencia rce(s) Supporting Document(s) ID Date Data Source [id number] 2019 12:00:00 AM EDT [place] ([facility]) Name Value Range Interpretation Code Description Data Hortencia rce(s) Supporting Document(s) ID Date Data Source [id number] 2019 12:00:00 AM EDT [place] ([facility]) Name Value Range Interpretation Code Description Data Hortencia rce(s) Supporting Document(s) ID Date Data Source [id number] 2019 12:00:00 AM EDT [place] ([facility]) Name Value Range Interpretation Code Description Data Hortencia rce(s) Supporting Document(s) ID Date Data Source [id number] 2019 12:00:00 AM EDT [place]NIE ([facility]) Name Value Range Interpretation Code Description Data Hortencia rce(s) Supporting Document(s) ID Date Data Source [id number] 2019 12:00:00 AM EDT [place]ONNIE ([facility]) Name Value Range Interpretation Code Description Data Hortencia rce(s) Supporting Document(s) ID Date Data Source [id number] 2019 12:00:00 AM EDT [place]ONNIE ([facility]) Name Value Range Interpretation Code Description Data Hortnecia rce(s) Supporting Document(s) ID Date Data Source [id number] 2019 12:00:00 AM EDT [place]ONNIE ([facility]) Name Value Range Interpretation Code Description Data Hortencia rce(s) Supporting Document(s) ID Date Data Source [id number] 2019 12:00:00 AM EDT [place]IE ([facility]) Name Value Range Interpretation Code Description Data Hortencia rce(s) Supporting Document(s) ID Date Data Source [id number] 2019 12:00:00 AM EDT [facility] Name Value Range Interpretation Code Description Data Hortencia rce(s) Supporting Document(s) SARS-CoV-2 [facility] This lab was ordered by [facility] and reported by [facility]. Procedure Social History Code Duration Value Status Description Data Source(s ) Smoking 10/22/2019 12:00:00 AM EDT Never Smoker completed Never S moker eCW1 ([facility]) Smoking 10/22/2019 12:00:00 AM EDT Never Smoker completed Never S moker eCW1 ([facility]) Smoking 10/22/2019 12:00:00 AM EDT Never Smoker completed Never S moker eCW1 ([facility]) Vital Signs ID Date Data Source [id number] Name Value Range Interpretation Code Description Data Source(s) Body mass index (BMI) [Ratio] 27.3 kg/m2 27.3 k g/m2 [facility] ([facility] ) Body weight 174.25 [lb_av] 174.25 [lb_av] MEDEN T ([facility] ) Body height 67 [in_i] 67 [in_i] [facility] ([facility] ) 5'7" Body temperature 97.3 [degF] 97.3 [degF] [facility] ([facility] ) Diastolic blood pressure 70 mm[Hg] 70 mm[Hg] eCW1 ([facility]) Systolic blood pressure 110 mm[Hg] 110 mm[Hg] e CW1 ([facility]) Body temperature 97.0 [degF] 97.0 [degF] eCW1 ( [facility]) Respiratory rate 18 /min 18 /min eCW1 ([facility]) Heart rate 60 /min 60 /min eCW1 ([facility]) Body mass index (BMI) [Ratio] 28.39 kg/m2 28.39 kg/m2 eCW1 ([facility]) Body height 66.5 [in_i] 66.5 [in_i] eCW1 ([facility]) Body weight 178.6 [lb_av] 178.6 [lb_av] eCW1 ([facility]) Body weight 165 [lb_av] 165 [lb_av] LONNIE ([facility]) Systolic blood pressure 101 mm[Hg] 101 mm[Hg] A THENA ([facility]) Body mass index (BMI) [Ratio] 26.6 kg/m2 26.6 k g/m2 LONNIE ([facility]) Body height 66 [in_i] 66 [in_i] LONNIE ([facility]) Diastolic blood pressure 58 mm[Hg] 58 mm[Hg] LONNIE ([facility]) Body weight 165 [lb_av] 165 [lb_av] LONNIE ([facility]) Systolic blood pressure 101 mm[Hg] 101 mm[Hg] A THENA ([facility]) Body mass index (BMI) [Ratio] 26.6 kg/m2 26.6 k g/m2 LONNIE ([facility]) Body height 66 [in_i] 66 [in_i] LONNIE ([facility]) Diastolic blood pressure 58 mm[Hg] 58 mm[Hg] LONNIE ([facility]) Body weight 165 [lb_av] 165 [lb_av] LONNIE ([facility]) Systolic blood pressure 101 mm[Hg] 101 mm[Hg] A THENA ([facility]) Body mass index (BMI) [Ratio] 26.6 kg/m2 26.6 k g/m2 L[facility]NIE ([facility]) Body height 66 [in_i] 66 [in_i] LONNIE ([facility]) Diastolic blood pressure 58 mm[Hg] 58 mm[Hg] LONNIE ([facility]) Body weight 165 [lb_av] 165 [lb_av] LONNIE ([facility]) Systolic blood pressure 101 mm[Hg] 101 mm[Hg] A THENA ([facility]) Body mass index (BMI) [Ratio] 26.6 kg/m2 26.6 k g/m2 LONNIE ([facility]) Body height 66 [in_i] 66 [in_i] LONNIE ([facility]) Diastolic blood pressure 58 mm[Hg] 58 mm[Hg] LONNIE ([facility]) Body weight 165 [lb_av] 165 [lb_av] LONNIE ([facility]) Systolic blood pressure 101 mm[Hg] 101 mm[Hg] A THENA ([facility]) Body mass index (BMI) [Ratio] 26.6 kg/m2 26.6 k g/m2 LONNIE ([facility]) Body height 66 [in_i] 66 [in_i] LONNIE ([facility]) Diastolic blood pressure 58 mm[Hg] 58 mm[Hg] LONNIE ([facility]) Body weight 165 [lb_av] 165 [lb_av] LONNIE ([facility]) Systolic blood pressure 101 mm[Hg] 101 mm[Hg] A THENA ([facility]) Body mass index (BMI) [Ratio] 26.6 kg/m2 26.6 k g/m2 LONNIE ([facility]) Body height 66 [in_i] 66 [in_i] LONNIE ([facility]) Diastolic blood pressure 58 mm[Hg] 58 mm[Hg] LONNIE ([facility]) Body weight 165 [lb_av] 165 [lb_av] LONNIE ([facility]) Systolic blood pressure 101 mm[Hg] 101 mm[Hg] A THENA ([facility]) Body mass index (BMI) [Ratio] 26.6 kg/m2 26.6 k g/m2 LONNIE ([facility]) Body height 66 [in_i] 66 [in_i] LONNIE ([facility]) Diastolic blood pressure 58 mm[Hg] 58 mm[Hg] LONNIE ([facility]) Body weight 165 [lb_av] 165 [lb_av] LONNIE ([facility]) Systolic blood pressure 101 mm[Hg] 101 mm[Hg] A THENA ([facility]) Body mass index (BMI) [Ratio] 26.6 kg/m2 26.6 k g/m2 LONNIE ([facility]) Body height 66 [in_i] 66 [in_i] LONNIE ([facility]) Diastolic blood pressure 58 mm[Hg] 58 mm[Hg] LONNIE ([facility]) Body weight 165 [lb_av] 165 [lb_av] LONNIE ([facility]) Systolic blood pressure 101 mm[Hg] 101 mm[Hg] A THENA ([facility]) Body mass index (BMI) [Ratio] 26.6 kg/m2 26.6 k g/m2 LONNIE ([facility]) Body height 66 [in_i] 66 [in_i] LONNIE ([facility]) Diastolic blood pressure 58 mm[Hg] 58 mm[Hg] LONNIE ([facility]) Body weight 165 [lb_av] 165 [lb_av] LONNIE ([facility]) Systolic blood pressure 101 mm[Hg] 101 mm[Hg] A THENA ([facility]) Body mass index (BMI) [Ratio] 26.6 kg/m2 26.6 k g/m2 LONNIE ([facility]) Body height 66 [in_i] 66 [in_i] LONNIE ([facility]) Diastolic blood pressure 58 mm[Hg] 58 mm[Hg] LONNIE ([facility]) Body weight 165 [lb_av] 165 [lb_av] LONNIE ([facility]) Systolic blood pressure 101 mm[Hg] 101 mm[Hg] A THENA ([facility]) Body mass index (BMI) [Ratio] 26.6 kg/m2 26.6 k g/m2 LONNIE ([facility]) Body height 66 [in_i] 66 [in_i] LONNIE ([facility]) Diastolic blood pressure 58 mm[Hg] 58 mm[Hg] LONNIE ([facility]) Patient Treatment Plan of Care Planned Activity Planned Date Details Description Data Source (s) 24 HR Oxybutynin chloride 10 MG Extended Release Oral Tablet 11/11/2019 12:00:00 AM EDT [facility] Myrebtriq 25 MG 10/22/2019 12:00:00 AM EDT eCW1 ([facility]) Myrebtriq 25 MG 10/22/2019 12:00:00 AM EDT eCW1 ([facility]) Myrebtriq 25 MG 10/22/2019 12:00:00 AM EDT eCW1 ([facility])
[2020-07-07 15:51] VITALS: BP 113/67
[2020-07-07] MEDS: SERTRALINE HCL 50 MG TAB PO SCH (21:00)
[2020-07-08 06:30] VITALS: BP 143/65
--- NOTE | 2020-07-08 09:06 | MHHPEPDOC ---
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 He had been writing to another woman, as well as pictures. He had been talking to another woman. At times, once a month at times, 3 times a week times once every 3 weeks when he was at home on quarantine. He states his and he were childhood sweethearts, but she isn't "adventurous". Patient had certain fantasies and wanted to be "more adventurous". What happened was his daughter was playing online and white sort his emails to this woman and the emails were "adventurous". This woman who he had met in [place] last physically saw the patient 3 years ago. They had met in training. His got upset. Patient stated, "I became honest and gave my details. He states he has heavy guilt and remembered how his mother used to cry a lot. He states his stepfather was killed in a car crash. He remembers how his biological father had caused his mother to cry and began to feel like he had now done the same thing to his . That night he was unable to sleep and was concerned he might lose his . He had suicidal thoughts. He attempted to hurt himself with a knife with a hot pain in. He called his sergeant but it turned his phone off, so his became frant ic because CMP showed up at the door. He states he has been feeling "very numb and not himself. Ever since 2003 following combat in [place]. His medical history is positive for back trouble. He has been treated for PTSD for 8 weeks when he returned from [place]. He is not on any medications. He has had wrist and hernia surgery. He has no legal difficulties. He has a bachelor's degree in health and wellness. His family history is positive for high blood pressure but no mental illness and he has no other stressors that his and his difficulties. He has 2 children, 8 and 13 Psychiatric Review of Systems Depression (2 or more weeks): depressed mood, insomnia/hypersomnia, feelings of excess/guilt, suicidal thoughts Kim (4 or more days of): denies Psychosis: denies PTSD: history of trauma, intrusive memories Anxiety: situational anxiety Past Psychiatric History Previous Psychiatric Diagnosis: PTSD Previous Psychiatric Admissions:. No previous admissions. Suicide Attempts:. Suicided gestures. This admission. Psychiatric Follow-up: 8 weeks of PTSD treatment many years ago. Psychiatric medications:. Psychiatric medications. Past Medical History Medical Problems Back trouble Head Injury: No Seizures: No Hospitalizations: No Surgeries: No Family Medical/Psychiatric HX Medical Problems Desi history of hypertension Psychiatric Disorders: No Addiction: No Suicide Attemps/Completions: No Addiction History denies Social History Childhood: No known childhood difficulties. Abuse/Trauma:. Stepfather was killed in a car crash. Parents were . Current Living Situation: With . Education:. Bachelor's degree health and wellness. Employment: Staff [employer]. Social Support: and children. Legal:. No legal difficulty. Marital:, 19 years, . Mental Status Examination General Appearance: well groomed Build: average Demeanor: average Eye Contact: average Activity: average Behavior: cooperative Speech: clear Mood: depressed, anxious Mood Hopeful to return home Affect: full Thought Process: logical/linear Thought Content (Delusions): none reported Thought Content (Other): guilty Thought Content (Aggressive): none reported Perception (Hallucinations): none reported Perception (Other): none reported Cognition (Impairment of): none reported Cognition(Intelligence Est.): average Oriented: Oriented times three Insight: fair Judgment: Fair Psychosis: Denies Diagnoses PTSD situational depression. Family stressors A-FIB/CHADSVASC A-FIB History Current/History of A-Fib/PAF?: No Current PO Anticoag Therapy: No Age/Risk Factor Scoring CHADSVASC: CHADSVASC Response (Comments) Value Age Risk Factor Age < 65 years old 0 Total 0 Treatment Treatment ordered: NONE Initial Treatment Plan 1. Patient was admitted on a [9.39] status. 2. Complete history was obtained. 3. With patients permission, family will be contacted and database will be expanded. 4. Patients medication regimen will be reviewed and changed accordingly. 5. Patient will be provided with protected environment. 6. Patient will be treated with individual, group, and milieu therapies. 7. Patient will receive supportive psych-education. 8. Discharge planning will commence immediately. 9. Outpatient follow-up treatment will be strongly recommended. 10. The initial treatment plan will focus initially on: * Depression. * Risk for suicide. ESTIMATED LENGTH OF STAY: - DAYS. TIME SPENT COUNSELING AND COORDINATING INITIAL CARE: minutes. Vital Signs Vital Signs Date Time Temp Pulse Resp B/P (MAP) Pulse Ox O2 Delivery O2 Flow Rate FiO2 07/08/20 06:30 99.0 61 14 143/65 (91) 98 Room Air Medications No Active Prescriptions or Reported Meds Allergies Coded Allergies: No Known Allergies (Unverified , 07/07/20) ELZBIETA MORAN MD Jul 08, 2020 09:06
--- NOTE | 2020-07-08 09:49 | HPE ---
HISTORY AND PHYSICAL DATE OF ADMISSION: 07/07/2020 HISTORY OF PRESENT ILLNESS: This is a hospitalist generated admission history and physical. PAST MEDICAL HISTORY: His medical history is benign. He saw urology 10/2019 for urinary frequency and was started on some Myrbetriq, which really apparently did not do very much for him. PAST SURGICAL HISTORY: 1. Hernia repair. 2. Left wrist repair. FAMILY HISTORY: Non-contributory. REVIEW OF SYSTEMS: No chest pain, shortness of breath, palpitations, or syncope. PHYSICAL EXAMINATION: VITAL SIGNS: Stable. GENERAL APPEARANCE: Alert and conversant, in no distress. HEENT: Unremarkable. LUNGS: Clear. HEART: Regular rhythm without murmur. ABDOMEN: Soft and nontender with no masses. EXTREMITIES: No peripheral edema. LABORATORY DATA: CBC and CMP unremarkable. Tox screen was negative. COVID test was negative. IMPRESSION: The patient is medically stable and has no ongoing medical issues that should require hospitalist involvement. Please let us know if there are any further services required.
[2020-07-08 16:11] VITALS: BP 110/90
[2020-07-08] MEDS: SERTRALINE HCL 50 MG TAB PO SCH (21:00)
[2020-07-09 07:05] VITALS: BP 118/70
--- NOTE | 2020-07-09 15:01 | MHIPNPDOC ---
[facility] Progress Note Progress Note DATE OF SERVICE: 07/09/20 HISTORY: Following marital difficulties with his who caught him with emails and pictures and another woman. This patient notified his sergeant and then t urned his phone off. His sergeant then notified the MPs who appeared at his house and brought him to the hospital. He had made suicidal statements to his sergeant initially by the time that they arrived at his house The acute aspects of the conflict were over. VITAL SIGNS: See below. NEW TEST RESULTS: None. CURRENT MEDICATIONS: See below. 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 Patient had been communicating with another woman using emails and photos. Speech: Is. Normal. Language skills are intact. Thought processes including: Wanting to go back home. Thought content:. No abnormal thought content. Abstract reasoning, and computation: Able to abstract. Description of associations: Loose association. Description of abnormal or psychotic thoughts:. No psychotic or abnormal thoughts. Judgment:. FAIR Insight: Fair. Orientation: 3. Recent and remote memory:.NO Disturbance. Attention span and concentration: Intact. Language:. Normal. Fund of knowledge: Full. Mood: Euthymic. Affect:, Congruent. DIAGNOSES: 1. PTSD. 2.. Marital conflict. 3. None. ASSESSMENT:. Patient needs to be in marital counseling MANAGEMENT PLAN: As above and will discharge. TIME SPENT: 30 minutes. Vital Signs Vital Signs Date Time Temp Pulse Resp B/P (MAP) Pulse Ox O2 Delivery O2 Flow Rate FiO2 07/09/20 07:05 98.8 72 14 118/70 (86) 98 Room Air Current Medications Current Medications Medications (Trade) Dose Ordered Sig/Sky Route PRN Reason Start Time Stop Time Status Last Admin Dose Admin Acetaminophen (Tylenol Tab) 650 mg Q6HP PRN PO HEADACHE or DISCOMFORT 07/07/20 14:30 Al Hydrox/Mg Hydrox/Simethicone (Mylanta) 30 ml Q4HP PRN PO HEARTBURN/INDIGESTION 07/07/20 14:30 Home Med (Med Rec Complete!) ASDIRECTED XX 07/07/20 14:45 07/07/20 14:33 DC Hydroxyzine HCl (Atarax) 25 mg TIDP PRN PO anxiety 07/07/20 14:30 Magnesium Hydroxide (Milk Of Magnesia) 30 ml DAILYPRN PRN PO CONSTIPATION 07/07/20 14:30 Sertraline HCl (Zoloft) 50 mg QHS PO 07/07/20 21:00 Trazodone HCl (Desyrel) 50 mg QHSP PRN PO INSOMNIA 07/07/20 14:30 Allergies Coded Allergies: No Known Allergies (Unverified , 07/07/20) ELZBIETA MORAN MD Jul 09, 2020 15:01
[2020-07-09 16:05] VITALS: BP 125/73
[2020-07-09] MEDS: SERTRALINE HCL 50 MG TAB PO SCH (21:00)
[2020-07-10 06:23] VITALS: BP 116/57
--- NOTE | 2020-07-10 11:05 | MHIPNPDOC ---
[facility] Progress Note Progress Note DATE OF SERVICE: 07/10/20 HISTORY: 39-year-old with marital difficulties and suicidal statements. VITAL SIGNS: See below. NEW TEST RESULTS: None. CURRENT MEDICATIONS: See below. MENTAL STATUS EXAMINATION: Patient is a 39-year old male, who is, planning to return to [facility] and seek marital counseling. Speech: Is. Normal. Language skills are intact. Thought processes including:, Planning marital counseling. Thought content:. No disturbance. Abstract reasoning, and computation: Able to abstract. Description of associations:. No looseness association. Description of abnormal or psychotic thoughts:, No psychotic thoughts. Judgment:, Poor. Insight: Good. Orientation: 3. Recent and remote memory: Intact. Attention span and concentration: Intact. Language:. No disturbance. Fund of knowledge:.full Mood: Euthymic. Affect:, Congruent. DIAGNOSES: 1., Situational depression. 2., Marital difficulties. 3. None. ASSESSMENT: 39-year-old male with marital concerns, who will be discharged and seek marital counseling with his MANAGEMENT PLAN: As above. TIME SPENT:, 30 minutes. Vital Signs Vital Signs Date Time Temp Pulse Resp B/P (MAP) Pulse Ox O2 Delivery O2 Flow Rate FiO2 07/10/20 06:23 98.8 65 14 116/57 (76) 100 Room Air Current Medications Current Medications Medications (Trade) Dose Ordered Sig/Sky Route PRN Reason Start Time Stop Time Status Last Admin Dose Admin Acetaminophen (Tylenol Tab) 650 mg Q6HP PRN PO HEADACHE or DISCOMFORT 07/07/20 14:30 Al Hydrox/Mg Hydrox/Simethicone (Mylanta) 30 ml Q4HP PRN PO HEARTBURN/INDIGESTION 07/07/20 14:30 Home Med (Med Rec Complete!) ASDIRECTED XX 07/07/20 14:45 07/07/20 14:33 DC Hydroxyzine HCl (Atarax) 25 mg TIDP PRN PO anxiety 07/07/20 14:30 Magnesium Hydroxide (Milk Of Magnesia) 30 ml DAILYPRN PRN PO CONSTIPATION 07/07/20 14:30 Sertraline HCl (Zoloft) 50 mg QHS PO 07/07/20 21:00 07/10/20 08:29 DC Trazodone HCl (Desyrel) 50 mg QHSP PRN PO INSOMNIA 07/07/20 14:30 Allergies Coded Allergies: No Known Allergies (Unverified , 07/07/20) ELZBIETA MORAN MD Jul 10, 2020 11:05
[2020-07-10 16:09] VITALS: BP 128/66
[2020-07-11 06:57] VITALS: BP 103/57
--- NOTE | 2020-07-11 08:34 | MHDSPDOC ---
[facility] Discharge Summary Discharge Summary DATE OF ADMISSION: Jul 07, 2020 at 14:23 DATE OF DISCHARGE: DISCHARGE DIAGNOSES: 1. Situational depression. 2., Marital stressors. REASON FOR ADMISSION:. 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 None TREATMENT AND PROGRESS ON THE UNIT : Patient has been cooperative with no significant difficulties requesting discharge and wanting outpatient marital therapy. HOSPITAL COURSE: As above DISCHARGE ASSESSMENT:. Situational depression with marital stressors, possible residual PTSD MENTAL STATUS EXAMINATION ON DISCHARGE: Patient is a 39-year old male, who is in good mood, optimistic and looking forward to discharge. Speech is. Normal. Language skills no difficulties. Thought processes including: No disturbance of thought processes. Thought content:, Some denial of marital concerns. Abstract reasoning, and computation: Able to abstract. Description of associations:. No loose associations. Description of abnormal or psychotic thoughts:. No abnormal or psychotic thoughts. Judgment:. Good, but perhaps some denial of marital difficulties. Insight:. Fair Orientation to 3. Recent and remote memory: Intact. Attention span and concentration: Intact. Language:. No disturbances. Fund of knowledge: Full. Mood: Good. Affect:, Congruent. MEDICATIONS ON DISCHARGE: -. No medications PLAN/FOLLOWUP ARRANGEMENTS: As per digital sales planner suggested marital therapy and PTSD follow-up. The amount of time spent in the coordination of care for this patient was approximately 35 minutes. Vital Signs/I&Os Vital Signs Date Time Temp Pulse Resp B/P (MAP) Pulse Ox O2 Delivery O2 Flow Rate FiO2 07/11/20 06:57 97.5 68 14 103/57 (72) 98 Room Air Laboratory Data Microbiology Microbiology 07/07/20 Respiratory Virus Panel (PCR) (BLAZE) - Final, Complete Medications No Active Prescriptions or Reported Meds Allergies Coded Allergies: No Known Allergies (Unverified , 07/07/20) ELZBIETA MORAN MD Jul 11, 2020 08:34
== END 2020-07-11 11:22 | disposition home or self-care (01) | DRG 881 ==
LOC: M ED 06:01 → M ED INP 14:23 → M PSY 15:45
PROVIDERS: ADMIT Psychiatry & Neurology Psychiatry; ATTEND Psychiatry & Neurology Child & Adolescent Psychiatry
DX: F32.9 Major depressive disorder, single episode, unspecified (principal); R45.851 Suicidal ideations; Z63.0 Problems in relationship with spouse or partner

== ENCOUNTER → 2020-10-06 | Outpatient (CLI) | payer OTHER ==
--- NOTE | 2020-10-07 10:28 | SLEEPCENT ---
NOCTURNAL POLYSOMNOGRAPHY DATE: 10/06/2020 ORDERED BY: TAE Cunningham Nocturnal polysomnography was performed for evaluation of sleep physiology in this patient with a history of excessive somnolence and nonrestorative sleep. 7 hours and 27 minutes of data were reviewed. There were 378 minutes of sleep identified. Sleep latency was normal at 6.5 minutes. REM latency was normal at 82 minutes. Sleep architecture was fragmented. There were four REM cycles noted. Overall sleep efficiency was 86.6%. The electrocardiogram showed a sinus rhythm with an average heart rate of 65 beats per minute. EEG showed normal waveforms for wake and sleep. There were 112 respiratory events identified of 10 seconds in duration or greater for an apnea-hypopnea index of 17.8. The events were primarily obstructive, not exclusive to sleep stage, and more frequent in the supine posture. Arousals from respiratory events occurred 11.3 times per hour and oxygen desaturations were seen into the 80s. There was some minor limb activity. Limb movement arousal index was 4.1. IMPRESSION: Obstructive sleep apnea syndrome (G47.33), apnea-hypopnea index 17.8. RECOMMENDATION: The patient should be encouraged to return to [facility]. In the interim, alcohol and sedative avoidance should be practiced and caution exercised during the operation of motor vehicles.
== END ==
LOC: M SLEEP 20:00
PROVIDERS: ATTEND Nurse Practitioner Family
DX: G47.33 Obstructive sleep apnea (adult) (pediatric) (principal)

== ENCOUNTER → 2020-10-30 | Outpatient (CLI) | payer OTHER ==
--- NOTE | 2020-10-31 16:07 | SLEEPCENT ---
NOCTURNAL POLYSOMNOGRAPHY DATE: 10/30/2020 ORDERED BY: TAE Cunningham Nocturnal polysomnography was performed for the titration of pressure therapy in this patient with obstructive sleep apnea syndrome with apnea-hypopnea index of 17.8. For testing a ResMed N20 AirFit nasal mask of large size was used, 4 cm of water pressure were applied to the circuit, and the lights were extinguished. 8 hours and 8 minutes of data were reviewed. There were 402.5 minutes of sleep identified. Sleep latency was prolonged at 40.5 minutes. REM latency was short at 62 minutes. Sleep architecture showed some fragmentation early, but there were three REM cycles noted. Overall sleep efficiency was 83.4%. The electrocardiogram showed a sinus rhythm with an average heart rate of 60 beats per minute. EEG showed reasonably normal waveforms for wake and sleep. Respiratory events were fully palliated with CPAP at a pressure of +5 with some minor limb activity noted in the EMG leads. On this occasion, limb movement arousal index was 7.2. There were no trains of 30 events. IMPRESSION: Obstructive sleep apnea syndrome (G47.33). RECOMMENDATION: Nightly use of pressure therapy 5 cm of water.
== END ==
LOC: M SLEEP 20:00
PROVIDERS: ATTEND Nurse Practitioner Family
DX: G47.33 Obstructive sleep apnea (adult) (pediatric) (principal)